=== PATIENT | male | born 1955 | race Caucasian/White ===

== ENCOUNTER → 2018-06-14 | Outpatient (CLI) | payer BC ==
[~2018-06-14] MED LIST: ASPIRIN DELAYE325 MG PO; COMBIGAN 0.2%-0.5 ML OP; DELTASONE20 MG PO; OMEGA-3 FISH1200 MG PO; SYNTHROID,LEVO25 MCG PO; VITAMIN B121000 MC2 SL; VITAMIN B1225 MCG PO; VITAMIN C1000 M2 PO; VITAMIN D32000 IU PO; XALATAN 0.005%2.5 ML INTRAOC
== END | disposition home or self-care (01) ==
LOC: ORTHO 04:02
DX: M17.0 Bilateral primary osteoarthritis of knee (principal); M25.462 Effusion, left knee; M25.461 Effusion, right knee

== ENCOUNTER 2018-10-01 02:18 | Inpatient (IN) | payer BC ==
[2018-10-01] VITALS (10 sets, daily range): BP systolic 82–161; BP diastolic 41–81
[~2018-10-01] VITALS: Ht 180.3 cm; Wt 98.9 kg
--- NOTE | ~2018-10-01 | EKG ---
[place], [place] ELECTROCARDIOGRAM REPORT NAME: GRETCHEN LOUIS UNIT #: [id number] ROOM: 427 DOCTOR: EMELIAANY DRAFT REPORT BIRTHDATE: [birth year] [facility] Test Date: 2018-10-03 Test Time: 13:56:42 Pat Name: GRETCHEN LOUIS Department: Room: 427 1 Gender: M Signals Collection Technician: Indu Robertson : 1955 Requested By: EVELINA BAINS Order Number: [id number] Reading MD: Charlene Salter MD Measurements Intervals [place] Rate: 118 P: 44 DE: 148 QRS: -50 QRSD: 139 T: 27 QT: 355 QTc: 498 Interpretive Statements Sinus tachycardia Probable left atrial enlargement RBBB and LAFB Lateral infarct, acute ST elevation, consider inferior injury Baseline wander in lead(s) V2 Compared to ECG 09/13/2018 12:10:54 Myocardial infarct finding now present ST (T wave) deviation now present Sinus rhythm no longer present Left ventricular hypertrophy no longer present Electronically Signed On 10-03-2018 16:21:23 PST by Charlene Salter MD CM:EKGRPT:ELECTROCARDIOGRAM REPORT [id number] EVELINA BAINS EPIPHANY DRAFT REPORT EVELINA BAINS
[~2018-10-01 02:18] MED LIST changes: +COUMADIN PO; +PREDNISONE PO; +Synthroid,Levo50 MCG PO; +VITAMIN E400 UNI3 PO
[2018-10-01 12:20] LABS: BASO % 0.2 % (0.0-1.0); EOS % 0.2 % (1.0-4.0); HEMATOCRIT 33.8 % (42.0-52.0); LYMPH # 1.2 10*3/uL (1.3-4.4); LYMPH % 18.4 % (27.0-41.0); MEAN CELL VOLUME 96.8 fl (80.0-94.0); MEAN CORPUSCULAR HGB 31.5 pg (27.0-31.0); MEAN CORPUSCULAR HGB CONC 32.5 g/dl (33.0-37.0); MEAN PLATELET VOLUME 10.2 fl (9.6-12.3); MONO # 0.3 10*3/uL (0.1-1.0); MONO % 4.4 % (3.0-9.0); NEUT % 76.2 % (47.0-73.0); PLATELET COUNT AUTOMATED 90 10*3/uL (130-400); RED BLOOD COUNT 3.49 10*6/uL (4.50-5.90); WHITE BLOOD COUNT 6.6 10*3/uL (4.8-10.8)
--- NOTE | 2018-10-01 13:00 | NUR ---
Time: 1300 A 63 year old MALE admitted to under services of MATIAS BLISS DO, Pt. arrived via bed from OR. Chief complaint: S/P LEFT TOTAL KNEE REPLACEMENT. PALLAVI ROSSI
--- NOTE | 2018-10-01 13:03 | NUR ---
PHYSICAL THERAPY Orders received, poatient not in room from OR at this time. Thank you for this referral. Alice Randolph,PT
--- NOTE | 2018-10-01 14:23 | NUR ---
Occupational Therapy evaluation completed on 4 with full eval to follow. Precautions include L TKA precautions, new wheeled walker use, fall risk. Patient is moderate complexity level [id number] via chart review, testing and evalaution. Recommend OT per POC and home v.s. SNF. Patient prefers to return home but he has 5 steps to enter his 1 floor home and will need to master stairs before returning home. Thank you for this referral. Pebbles Sheriff OTR/l
--- NOTE | 2018-10-01 14:24 | NUR ---
PHYSICAL THERAPY PAtient evaluated on 4 this date, full evaluation to follow. Continue with PT as per plan of care with fall and TKA LLA precautions. WBAT permitted. Home with home health RN, PT and OT. Patient is moderate complexity via chart review, tests and evaluation: [id number]. Thank you for this referral. Alice Randolph,PT
[2018-10-01 15:40] LABS: ALBUMIN 3.5 gm/dl (3.1-4.5); ALKALINE PHOSPHATASE 55 U/L (45-117); BUN 22 mg/dl (7-24); CHLORIDE 103 mmol/L (98-107); CREATININE 1.22 mg/dL (0.70-1.30); PHOSPHOROUS 2.9 mg/dL (2.5-4.9); POTASSIUM 4.1 mmol/L (3.5-5.1); SGOT/AST 29 IU/L (3-35); SGPT/ALT 47 U/L (12-78); SODIUM 140 mmol/L (136-145)
--- NOTE | 2018-10-01 16:40 | NUR ---
INSTRUCTED FOR IS THERAPY. PT ACHIEVING A VOLUME OF [id number] ML X 10 BREATHS X 1 SEC. BREATH HOLD. GOOD EFFORT. O2 SAT IS 100%. ENCOURAGED Q1 HOUR THERAPY W/A.
--- NOTE | 2018-10-01 21:44 | NUR ---
DILAUDID GIVEN FOR POST OP LT KNEE PAIN RATED 6/10. ALL SAFETY MEASURES IN PLACE. PT REQUESTS NO FURTHER NEEDS. YASMEEN KEY TO MONITOR.
[2018-10-02] VITALS: BP 137/59
--- NOTE | 2018-10-02 | NUR ---
PT C/O OF KNEE PAIN 03/26. PRN MEDS GIVEN. WILL MONITOR FOR EFFECTIVENESS.
--- NOTE | 2018-10-02 04:40 | NUR ---
PT C/O KNEE PAIN 04/26. PRN MEDS GIVEN WILL MONITOR FOR EFFECTIVENESS.
[2018-10-02 06:32] LABS: BASO % 0.1 % (0.0-1.0); HEMATOCRIT 31.8 % (42.0-52.0); HEMOGLOBIN 10.6 g/dl (14.0-18.0); LYMPH # 1.6 10*3/uL (1.3-4.4); LYMPH % 14.4 % (27.0-41.0); MEAN CORPUSCULAR HGB 32.3 pg (27.0-31.0); MEAN CORPUSCULAR HGB CONC 33.3 g/dl (33.0-37.0); MEAN PLATELET VOLUME 11.1 fl (9.6-12.3); MONO # 0.6 10*3/uL (0.1-1.0); MONO % 5.6 % (3.0-9.0); NEUT # 8.9 10*3/uL (2.3-7.9); NEUT % 79.2 % (47.0-73.0); RED BLOOD COUNT 3.28 10*6/uL (4.50-5.90); RED CELL DISTRI WIDTH 13.2 % (0-14.5); WHITE BLOOD COUNT 11.2 10*3/uL (4.8-10.8)
[2018-10-02 06:37] LABS: PLATELET COUNT AUTOMATED 143 10*3/uL (130-400)
[2018-10-02 06:43] LABS: INTERNATIONAL NORM RATIO 0.9 (2.0-3.5)
[2018-10-02 06:47] LABS: FREE T4 1.2 ng/dl (0.76-1.46)
[2018-10-02 06:53] LABS: THYROID STIM HORMONE (HS) 0.809 uIU/ml (0.358-4.75)
[2018-10-02 08:00] VITALS: BP 131/66
--- NOTE | 2018-10-02 08:15 | NUR ---
DILAUDID GIVEN FOR C/O LT KNEE PAIN. RATES 8/10 ON PAIN SCALE. WILL MONITOR.
--- NOTE | 2018-10-02 09:00 | NUR ---
Automation Technician in to talk to patient. Patient states lives at home with . There are 5 steps in the home. Physician: amy Pharmacy: Home health services: none Patient's level of ADLs: MODERATE ASSIST Patient has working utilities: all workin DME: walker Follow-up physician's appointment after d/c: will be made by hospitalist nurse director upon discharge Does patient want to access PORTAL?: no Discharge plan discussed with patient, patient states he lives at home with , he uses a walker for ambulation, patient states he has 5 steps to get into his home then everything is on one floor. discussed with him a short term longterm for rehab prior to going back home, patient did not want to go to a SNF, stated he wanted to go home with VNA. given choice of companies, he chose [facility], [facility], will send an order to [facility], [facility] for when patient is medically stable for discharge. LEWIS GUSMAN
--- NOTE | 2018-10-02 09:20 | NUR ---
DILAUDID EFFECTIVE PER PT.
--- NOTE | 2018-10-02 09:30 | NUR ---
OT NOTE Pt was seen this A.M. 1:! for 30 minute OT session. Upon arrival pt was supine in bed, pt identified by name and . Pt had reports of 6-7/10 in his L knee described as "pressure". Pt transferred supine to sit EOB with Blanca for assist with LLE management and use of overhead trapeze bar. While sitting EOB educated pt on knee precautions. Pt completed sit to stand transfer from bed level with Blanca and use of w/w for UE support. Pt completed functinal mobility into the bathroom with CGA and use of w/w. Educated pt on walker safety throughout due to staying away from walker and improving step sequence. There pt transferred on to standard commode with Blanca and use of grab bar with education to kick his LLE out when sitting. Clothing management completed with Blanca. Pt transferred off standard commode with maxA and use of grab bar due to being a low surface. Pt then stood sink side while washing his hands and face with SBA, pt had no LOB and was able to tolerate aprox 3 minutes of static standing before sitting due to fatigue. Pt returned to B where he transfered sit to supine with Blanca for assist with LLE. Pt was left supine in bed with call light in hand, tray table in place, and bed alarm activated for safety. Continue with rec D/C plan to home versus SNF. PINO Black/Jessica
[2018-10-02 12:00] VITALS: BP 133/73
--- NOTE | 2018-10-02 12:50 | NUR ---
PHYSICAL THERAPY Patient presented to therapy in supine with report of 6/10 pain in the L Knee. Patient is S/P TKA 10/01/18 on L LE. Patient agrees to therapy session. Patient was identified by name and . Patient performed supine ther ex to the L LE including SLR with AAROM, HEEL SLIDES with AAROM, HIP ABDUCTION WITH AAROM, QUAD SETS all with 10 reps each FOR IMPROVING ROM AND STRENGTH OF THE L LE. Patient then ambulated with W/W into bathroom and transferred to commode with MIN A X 1 with verbal cues for using handrail on R when sitting and kicking L LE out in front of him before sitting. Patient transferred STS off of commode with MAX A X 1. Patient performed supine to sitting at EOB with use of overhead trapeze and MIN A X 1 for moving L LE out over EOB. Patient is WBAT. Patient performed STS transfer with MIN A X 2. Patient ambulated with W/W for 88' X 1 with CGA X 1 and verbal cues for upright posture. Patient had good gait sequence with W/W. Patient transferred back to supine in bed with MIN A X 2. Patient was left in supine with head of bed elevated, call light within reach, and bed alarm activated. THIS STRETCHER LEVELER OPERATOR ACTIVATED BED ALARM WITH PINO AVILEZ WITNESS. Patient's compression boots were re-apllied and machine turned on. Patient was 1:1 with this STRETCHER LEVELER OPERATOR for 23 minutes total. Patient is recommended to PT upon discharge.
--- NOTE | 2018-10-02 13:15 | NUR ---
GRETCHEN LOUIS [id number] Please refer to the physician's history and physical for past medical history, comorbid conditions, and allergies. Diagnosis: S/P LEFT TOTAL KNEE REPLACEMENT Chema Score: 18,AT RISK WOUND DESCRIPTIONS: Patient has dressing intact to left knee. No strikethrough drainage noted at time of assessment. Patient states the areas is constantly sore but is improving. Patient stated had surgery yesterday with Dr. Marrero will continue follow up care with Dr. Marrero. Surface the patient is resting on: Isoflex SKIN PREVENTION RECOMMENDATION: 1. Pressure redistribution support surface as appropriate 2. Elevate heels 3. Remove boots/TEDS every shift and reapply 4. Head of bed 30 degrees as tolerated 5. Assess nutrition and hydration 6. Manage moisture 7. Avoid the use of containment devices while in bed 8. Use absorptive products on surfaces limit layers of linens on bed 9. Turn and reposition every 1-2 hours in bed and every 1 hour in chair as tolerated 10. Weight shifts every 15 minutes while up in chair 11. Offloading with pillows or device to keep heels elevated off bed 12. Monitor skin at least every shift 13. Inspect under medical devices twice a day WOUND TREATMENT RECOMMENDATIONS:
--- NOTE | 2018-10-02 13:28 | NUR ---
DILAUDID GIVEN FOR C/O LT KNEE PAIN. RATES 8/10 ON PAIN SCALE. WILL MONITOR.
--- NOTE | 2018-10-02 14:00 | NUR ---
OT Note Pt was seen this P.M. 1:1 for second OT session consisting of 15 minutes. Upon arrival pt was supine in bed, pt identified by name and . Pt had reports of 10/10 L knee pain. Pt transferred supine to sit EOB with Blanca for assist with LLE, pt utilized overhead trapeze bar and bed rail throughout transfer. Pt completed sit to stand transfer from elevated bed level with Blanca and use of w/w for UE support. Pt completed functional mobility around the room for increased I in self care tasks and functional transfers with CGA and use of w/w. Pt maintained good walker throughout. Challenged pt's static standing tolerance without UE support to simulate sink side grooming and pt was able to tolerate aprox 2 minutes at a time before reaching for UE support. Pt returned to EOB where he transferred sit to supine with Blanca for assist with LLE. Pt was left supine in bed with call light in hand, tray table in place, and bed alarm activated for safety. Continue with rec D/c plan to home versus SNF. PINO Black/Jessica
--- NOTE | 2018-10-02 14:13 | NUR ---
PHYSICAL THERAPY Patient presented to therapy with head of bed elevated and report of 10/10 pain in the L Knee. Patient's visiting in the room. Patient agrees to therapy sesion. Patient was identified by name and . Patient performed supine to sitting at EOB with MIN A X 1, MOSTLY FOR ASSISTING with moving the L LE out over EOB. Patient transferred STS with MIN A X 2. Patient performed ambulation with W/W and Close Supervision for 120' x 1 with verbal cues for upright posture and not to pivot on L LE. Patient became slightly lite-headed towards end of gait distance and then CGA X 1 was used. Patient recovered from the lite-headedness quickly. Patient has catheter in tow while ambulating. Patient transferred back to supine in bed with MIN A X 1. Patient was left in supine with head of bed elevated, call light within reach, and bed alarm activated. This MID WIFE activated bed alarm with PRINGLE RAGHAV as witness and also patient's as witness. Patient was 1:1 with this MID WIFE for 20 minutes total. Patient is recommended for HH PT upon discharge. KATHY SANTANA MID WIFE
--- NOTE | 2018-10-02 14:30 | NUR ---
DILUADID EFFECTIVE PER PT.
--- NOTE | 2018-10-02 15:44 | NUR ---
OCCUPATIONAL THERAPY CO-SIGN I approve of the Occupational Therapy notes written above. ISMAEL CORONADO OTR/Jessica
--- NOTE | 2018-10-02 15:54 | NUR ---
DILAUDID GIVEN FOR C/O LT KNEE PAIN. WAILL MONITOR.
[2018-10-02 16:00] VITALS: BP 112/71
--- NOTE | 2018-10-02 17:58 | NUR ---
DILAUDID GIVEN FOR C/O LT KNEE PAIN. WILL MONITOR.
--- NOTE | 2018-10-02 18:56 | NUR ---
DILAUDID EFFECTIVE PER PT
[2018-10-02 20:00] VITALS: BP 129/72
--- NOTE | 2018-10-02 20:28 | NUR ---
PATIENT MEDICATED WITH DILUADID PER DRS ORDERS FOR COMPLAINTS OF PAIN TO THE LEFT KNEE. RN WILL MONITOR FOR EFFECTIVENESS
--- NOTE | 2018-10-02 21:30 | NUR ---
PATIENT STATES "SOME RELIEF" FROM EARLIER PAIN MEDICATION
--- NOTE | 2018-10-02 22:25 | NUR ---
PATIENT MEDICATED PER FRANTZ NAYLOR FOR COMPLAINTS OF PAIN TO LEFT KNEE AT THIS TIME. RN WILL MONITOR FOR EFFECTIVENESS
--- NOTE | 2018-10-02 23:25 | NUR ---
PATIENT STATES MEDICATION WAS EFFECTIVE AT DECREASING PAIN
[2018-10-03] VITALS: BP 140/68
--- NOTE | 2018-10-03 00:35 | NUR ---
PATIENT MEDICATED FOR PAIN AT THIS TIME. SEE EMAR. RN WILL CONTINUE TO MONITOR
--- NOTE | 2018-10-03 02:40 | NUR ---
PT GIVEN PRN DILAUDID FOR PAIN. PT STATES EFFECTIVE IMMEDIATLY. WILL CONTINUE TO MONITOR PT
--- NOTE | 2018-10-03 05:55 | NUR ---
PATIENT MEDICATED PER DRS ORDERS FOR COMPLAINTS OF KNEE PAIN. SEE EMR. RN WILL MONITOR FOR EFFECTIVENESS
[2018-10-03 07:38] LABS: BASO % 0.2 % (0.0-1.0); EOS % 0.4 % (1.0-4.0); HEMATOCRIT 29.6 % (42.0-52.0); HEMOGLOBIN 9.9 g/dl (14.0-18.0); LYMPH % 19.2 % (27.0-41.0); MEAN CORPUSCULAR HGB 32.8 pg (27.0-31.0); MEAN CORPUSCULAR HGB CONC 33.4 g/dl (33.0-37.0); MEAN PLATELET VOLUME 10.6 fl (9.6-12.3); MONO # 0.5 10*3/uL (0.1-1.0); MONO % 4.9 % (3.0-9.0); NEUT # 7.7 10*3/uL (2.3-7.9); NEUT % 74.4 % (47.0-73.0); PLATELET COUNT AUTOMATED 119 10*3/uL (130-400); RED BLOOD COUNT 3.02 10*6/uL (4.50-5.90); RED CELL DISTRI WIDTH 13.3 % (0-14.5); WHITE BLOOD COUNT 10.4 10*3/uL (4.8-10.8)
[2018-10-03 08:00] VITALS: BP 143/68
[2018-10-03 08:02] LABS: INTERNATIONAL NORM RATIO 0.9 (2.0-3.5)
--- NOTE | 2018-10-03 09:00 | NUR ---
case management visits with patient, again discussed with him a discharge plan, patient states he will be going home when able and will have [facility]. no other needs at this time
--- NOTE | 2018-10-03 10:30 | NUR ---
OT NOTE Pt was seen this A.M. 1:1 for 20 minute OT session. Upon arrival pt was supine in bed, pt identified by name and . Pt had reports of 5/10 LLE knee pain at rest and 8/10 with activity. Educated and demonstrated use of leg rn occupational for increased I in bed mobility. Pt transferred supine to sit EOB with CGA and use of leg lift and overhead trapeze bar. Functional mobility completed into the bathroom with CGA and use of w/w for UE support. There he transferred on to standard commode with Blanca and use of grab bar, clothing management completed with Blanca, and transferred off standard commode with modA and use of grab bar. Pt then stood sink side while washing his hands with SBA. Functional mobility completed back to EOB where he transferred sit to supine with use of leg lift and CGA. Pt was left supine in bed with call light in reach and under doctor supervision. Continue with rec D/c plan to home versus SNF. PINO Black/Jessica
--- NOTE | 2018-10-03 11:01 | NUR ---
PHYSICAL THERAPY Patient presented to therapy in [facility] with head of bed elevated and bed alarm activated. Patient had report of 5/10 pain in L Knee at rest and 8/10 pain in L Knee with activity. Patient agrees to therapy session. Patient was identified by name and . Patient transferred supine to sitting at EOB with SBA with verbal cues for using LE lift to move L LE out to side and over EOB. Patient transferred STS with MOD A X 1. Patient ambulated with W/W for 192' x 1 with CGA X 1 with verbal cues for upright posture and proper gait mechanics. Patient transferred to and from [facility] with MIN A X 1 to sit and MOD A X [facility]. Patient transferred back to supine in bed with SBA. Patient was left in supine with head of bed elevated and DR. Marrero , another Doctor, and Grain Shipper for Dr. Marrero present with patient about to change the dressing on patient's L LE. Patient was 1:1 with this CLINICAL TRIALS MANAGER FOR 23 MINUTES TOTAL. KATHY SANTANA CLINICAL TRIALS MANAGER
--- NOTE | 2018-10-03 11:59 | NUR ---
URINARY CATHETER REMOVED AT THIS TIME PER POST-OP DAY 2 ORDER. PT TOLERATED WELL. THERE ARE NO COMPLAINTS AT THIS TIME. WILL CONTINUE TO MONITOR.
[2018-10-03 12:00] VITALS: BP 125/65
--- NOTE | 2018-10-03 13:15 | NUR ---
MEDICATED WITH IV DILAUDID ORDERED PER PT REQUEST FOR C/O PAIN RATED 6/10.
--- NOTE | 2018-10-03 13:25 | NUR ---
OT NOTE Pt was seen this P.M. 1:1 for second OT session consisting of 20 minutes. Upon arrival pt was supine in bed, pt identified by name and . Pt had reports of 6/10 L knee pain. Pt transferred supine to sit EOB with SBA and use of leg lift. While sitting EOB educated and demonstrated use of sock aid, vocational placement specialist, and long handle sponge for increased I in self care tasks. Pt then doffed socks using the vocational placement specialist with supervision. Donned socks using the sock aid with supervision and min verbal prompts for improving his technique. Pt then completed LB bathing with use of long handle sponge and supervision. Pt transferred back into bed sit to supine with SBA where he was left with call light in hand, tray table in place, and bed alarm activated for safety. Continue with rec D/c plan to home versus SNF. PINO Black/Jessica
--- NOTE | 2018-10-03 13:57 | NUR ---
PT IS RESTING IN BED AT THIS TIME WITH FAMILY AT THE BEDSIDE. HIS ONLY COMPLAINT AT THIS TIME IS PAIN TO HIS LEFT KNEE WHICH HE STATES IS CONTROLLED WITH PRN ORDER FOR DILAUDID. AT THIS TIME HE STATES HIS PAIN IS A 4/10. PT HAS AMBULATED IN THE [place] WITH PHYSICAL THERAPY TWICE AND TOLERATED WELL. SURGICAL SITE DRESSING WAS CHANGED TODAY, IT IS CLEAN, DRY AND INTACT. WILL CONTINUE TO MONITOR PT.
--- NOTE | 2018-10-03 14:24 | NUR ---
PHYSICAL THERAPY Patient presented to therapy in supine with head of bed elevated and report of 5/10 pain with no activity and 8/10 PAIN IN L KNEE with ACTIVITY. Patient agrees to therapy session. Patient was identified by name and . Patient performed supine to sitting transfer to EOB with SBA and patient using leg lift to assist with moving the L LE over EOB. Patient transferred STS with MOD A X 1. Patient ambulated with W/W and Close Supervision for 160' x 1 with verbal cues for putting heel down when advancing the L LE to promote extension and upright posture. Patient transferred back to supine in bed with SBA with patient using the leg lift as he transferred back to supine in bed. Patient used the trapeze only to move up in bed. Patient then performed supine ther ex in all planes of movement with assist from LEG LIFT DEVICE, AAROM, including ANKLE PUMPS, SLRs, hip abduction, heel slides, Quad sets, and heel prop hamstring stretch with lite overpressure. Patient tolerated treatment well with better gait mechanics and improving strength and ROM of the L Knee. Patient has the isrrael bandage wrap removed now and feels much more comfortable and has improving ROM. Patient was left in supine position with head of bed elevated, L HEEL on rolled blanket, call light within reach, and bed alarm activated. Patient's is in room visiting. Patient's bed alarm was witnessed being turned on by patient's and other therapist. Patient was 1:1 with this BRUSHER TENDER for 25 minutes total. KATHY SANTANA BRUSHER TENDER
[2018-10-03 14:56] LABS: EOS % 0.1 % (1.0-4.0); HEMATOCRIT 30.5 % (42.0-52.0); LYMPH # 1.3 10*3/uL (1.3-4.4); LYMPH % 11.4 % (27.0-41.0); MEAN CELL VOLUME 97.4 fl (80.0-94.0); MEAN CORPUSCULAR HGB 31.9 pg (27.0-31.0); MEAN CORPUSCULAR HGB CONC 32.8 g/dl (33.0-37.0); MEAN PLATELET VOLUME 10.7 fl (9.6-12.3); MONO # 0.4 10*3/uL (0.1-1.0); MONO % 3.2 % (3.0-9.0); NEUT # 9.3 10*3/uL (2.3-7.9); NEUT % 84.4 % (47.0-73.0); PLATELET COUNT AUTOMATED 107 10*3/uL (130-400); RED BLOOD COUNT 3.13 10*6/uL (4.50-5.90); RED CELL DISTRI WIDTH 13.2 % (0-14.5)
--- NOTE | 2018-10-03 15:00 | NUR ---
RECIEVED PT FROM [facility]. PATIENT IS SITTING UP IN BED AT THIS TIME, VOICED NO COMPLAINTS AT THIS TIME. NO S&S OF DISTRESS NOTED, RESP ARE ERND ON ROOM AIR. ASKED PRIOR NURSE TO VERIFY CPM ORDERS AND IF WANTS IT ON TODAY. BED IS LOCKED IN LOWEST POSITIONS. SCDS REAPPLIED TO BLE. LEFT KNEE AQUACEL DRESSING D/C/I. CALL LIGHT LEFT WITHIN REACH.
[2018-10-03 15:10] LABS: BUN 27 mg/dl (7-24); CHLORIDE 96 mmol/L (98-107); CREATININE 1.24 mg/dL (0.70-1.30); POTASSIUM 4.4 mmol/L (3.5-5.1); SODIUM 133 mmol/L (136-145)
--- NOTE | 2018-10-03 15:25 | NUR ---
ON FLOOR ADDRESSED CONCERNS WITH EKG FINDINGS AND ELEVATED D.DIMER RESULTS. STATED THAT CTA AND ULTRASOUND WILL BE ORDER.
--- NOTE | 2018-10-03 15:27 | NUR ---
JJ-RN CONFORMED WITH THATCPM SHOULD BE ON TODAY AND TO HAVE PT PUT INTO PLACE AT 30 DEGREES FOR 2HRS, IF PATIENT DOENS'T TOLERATE TO D/C CPM ORDERS. CPM WILL BE HELD AT THIS TIME THOUGH PER NURSING JUDGEMENT D/T RECENT LAB RESULTS AND NEW ORDERS TO BE PLACED BY DR. CUI FOR CTA AND US OF LOWWER EXTREMITY.
--- NOTE | 2018-10-03 15:53 | NUR ---
PATIENT MEDICATED WITH DILUADID FOR LEFT KNEE PAIN 01/24. WILL MONITOR.
[2018-10-03 16:00] VITALS: BP 122/60
--- NOTE | 2018-10-03 16:01 | NUR ---
INFORMED THAT CT REQUEST FOR STAT CXR TO BE CHANGED TO PORTABLE CXR 1VIEW.STATED THAT WAS FINE AND TO PLACE THE ORDER.
--- NOTE | 2018-10-03 16:25 | NUR ---
CALLED AND INFORMED THAT SHE NOTICED D.DIMER AND REQUESTED THAT CPM NOT BE PLACE ATTHIS TIME , IMFORMED HER THAT PER MY NURSING JUDGEMENT HE WAS NOT PLACED IN IT, STATED THAT WAS FINE. STATED IT WAS OK THOUGH AFTER ALL TEST CAME BACK NEGATIVE FOR BLOOD CLOT, WE CAN TRY CPM WITH LAST SETTINGS ORDERED.
--- NOTE | 2018-10-03 16:53 | NUR ---
DILUADID EFFECTIVE FOR LEFT KNEE PAIN.
--- NOTE | 2018-10-03 17:15 | NUR ---
Hep Lock discontinued TO LEFT ARM. Site symptomatic, RED AT SITE. Pressure applied. Sterile dressing applied. MAYE BERNARD
--- NOTE | 2018-10-03 17:15 | NUR ---
IV started left antecubital with #24 angiocath after 0 attempts. The IV site was prepped with Chloraprep. Heparin lock attached. Sterile dressing applied. Patient tolerated precedure well. Procedure performed according to [facility] policy & procedure. MAYE BERNARD
--- NOTE | 2018-10-03 18:22 | NUR ---
INFORMED OF US RESULTS AND OF DVT TO RLE. STATED WAIT FOR CTA RESULTS.
--- NOTE | 2018-10-03 19:45 | NUR ---
PENDING ORDERS FOR LOVENOX BID STARTING TONIGHT AT 1999. CALLED RESIDENT TO CONFIRM ORDER DESPITE PT HAVING PLT LEVEL OF 107. STATED HE WILL NOTIFIY WHEN DECISION IS MADE
[2018-10-03 20:00] VITALS: BP 109/69
--- NOTE | 2018-10-03 20:08 | NUR ---
PT GIVEN PRN DILAUDID FOR PAIN. PT STATES EFFECTIVE IMMIDIATLY. WILL CONTINUE TO MONITOR PT
--- NOTE | 2018-10-03 20:15 | NUR ---
NOTIFIED THAT LOVENOX IS TO BE STARTED TONIGHT DESPITE 107 PLT COUNT. WILL FOLLOW ORDERS SUCH. DISCUSSED MEDICATION WITH PT.
--- NOTE | 2018-10-03 22:28 | NUR ---
PT GIVEN PRN DILAUDID FOR PAIN. PT STATES EFFECTIVE IMMEDIATLY.
[2018-10-04] VITALS: BP 118/65
--- NOTE | 2018-10-04 02:20 | NUR ---
PT GIVEN DILAUDID FOR PAIN. PT STATES EFFECTIVE IMMEDIATLY
--- NOTE | 2018-10-04 05:15 | NUR ---
PT GIVEN DILAUDID FOR PAIN. PT STATES EFFECTIVE IMMEDIATLY
[2018-10-04 06:34] LABS: BASO % 0.2 % (0.0-1.0); EOS % 0.3 % (1.0-4.0); HEMATOCRIT 28.7 % (42.0-52.0); HEMOGLOBIN 9.3 g/dl (14.0-18.0); LYMPH # 1.9 10*3/uL (1.3-4.4); LYMPH % 20.7 % (27.0-41.0); MEAN CELL VOLUME 97.3 fl (80.0-94.0); MEAN CORPUSCULAR HGB 31.5 pg (27.0-31.0); MEAN CORPUSCULAR HGB CONC 32.4 g/dl (33.0-37.0); MEAN PLATELET VOLUME 10.9 fl (9.6-12.3); MONO # 0.3 10*3/uL (0.1-1.0); MONO % 3.7 % (3.0-9.0); NEUT # 6.8 10*3/uL (2.3-7.9); NEUT % 73.8 % (47.0-73.0); PLATELET COUNT AUTOMATED 133 10*3/uL (130-400); RED BLOOD COUNT 2.95 10*6/uL (4.50-5.90); RED CELL DISTRI WIDTH 13.2 % (0-14.5); WHITE BLOOD COUNT 9.2 10*3/uL (4.8-10.8)
[2018-10-04 06:47] LABS: INTERNATIONAL NORM RATIO 0.9 (2.0-3.5)
[2018-10-04 07:14] LABS: BUN 25 mg/dl (7-24); CHLORIDE 97 mmol/L (98-107); CREATININE 1.12 mg/dL (0.70-1.30); POTASSIUM 3.7 mmol/L (3.5-5.1); SODIUM 136 mmol/L (136-145)
[2018-10-04 08:21] VITALS: BP 125/66
--- NOTE | 2018-10-04 09:00 | NUR ---
case management visits with patient, patient states he will be going home when able, a respresentative from [facility] called and spoke to him yesterday about their services. patient will be going home when medically stable
--- NOTE | 2018-10-04 09:10 | NUR ---
OT NOTE Pt was seen this A.M 1:1 for 18 minute OT session. Upon arrival pt wa supine in bed, pt identified by name and . Pt transferred supine to sit EOB with SBA and use of leg lift. While sitting EOB pt donned his socks using the sock aid with supervision. Pt then completed sit to stand from bed level with Blanca and use of w/w for UE support. Functional mobility completed into the bathroom with SBA and use of w/w where he transferred on to standard commode with Blanca and use of grab bar. Clothing management completed with Blanca and toilet hygiene completed WI while seated. Pt then transferred off standard commode with maxA and use of grab bar with education on technique to increase I. Pt then stood sink side while washing his hands with SBA. Functional mobility completed around the room back to the EOB with SBA where he transferred sit to supine with SBA and good use of leg lift. Pt was left supine in bed with call light in hand, tray table in place, and bed alarm activated for safety. Continue with rec D/C plan to home versus SNF. PINO Black/Jessica
--- NOTE | 2018-10-04 09:23 | NUR ---
PHYSICAL THERAPY Patient presented to therapy in supine with head of bed elevated and report of having tests yesterday for a DVT of the L LE ,which were Negative for DVT.Patient reports redness around the L Knee area and he has a MÓNICA HOSE on his L LE. Patient performed supine to sitting at EOB transfer with SBA. Patient uses the LEG LIFT to move the L LE out over the EOB to floor to assist with transfer. Patient did not use the trapeze to transfer. Patient performed transfer STS with MOD A X 1 to W/W. Patient ambulated to restroom and transferred to commode with MIN A X 1. Patient transferred off of commode with MAX A X 1. Patient ambulated 120' x 1 with W/W and his nurse just connected electrodes ot patient's chest to monitor heart rate. Patient's heart rate was recorded as 129 -135 the entire distance of the gait. Patient's performed gait with W/W and Close Supervision. Patient transferred back to supine in bed with use of LEG LIFT on L LE with SBA. Patient was left in supine with head of bed elevated, call light within reach, and bed alarm activated. Patient bed alarm was activated with PINO AVILEZ WITNESS. Patient was 1:1 with this PROPERTY COORDINATOR for 25 minutes total. KATHY SANTANA PROPERTY COORDINATOR
--- NOTE | 2018-10-04 11:02 | NUR ---
PRN ORDER FOR DILAUDID REQUESTED AND RECIEVED FOR C/O PAIN TO LEFT KNEE. PT STATES THAT IT IS A 6-7/10 WITH INCREASED PAIN WHEN HE MOVES. WILL MONITOR FOR EFFECTIVENESS OF MEDICATION
[2018-10-04 12:00] VITALS: BP 120/65
--- NOTE | 2018-10-04 12:30 | NUR ---
DILAUDID EFFECTIVE PER PT
--- NOTE | 2018-10-04 13:00 | NUR ---
OT NOTE Pt was seen this P.M. 1:1 for second OT session consisting of 15 minutes. Upon arrival pt was sitting upright on the EOB. Pt identified by name and . Pt transferred on to standard commode with Blanca and use of grab bar. Clothing management completed with Blanca and toilet hygiene completed OH while seated. Pt then transferred off standard commode with Blanca using technique of leaning to the R side while standing like previously educated on. Pt then stood sink side while washing his hands with SBA. Pt transferred back into to bed sit to supine with SBA and use of leg lift. Pt was left supine in bed with call light in hand, trya table in place, and bed alarm activated for safety. Continue with rec D/C plan to homw versus SNF. PINO Black/Jessica
--- NOTE | 2018-10-04 14:23 | NUR ---
PHYSICAL THERAPY Patient presented to therapy in supine with head bed elevated, visiting in room , and no complaints or concerns. Patient agrees to therapy session. Patient was identified by name and . Patient transferred supine to sitting at EOB with SBA. Patient used leg lift and did not use overhead trapeze. Patient transferred STS with to W/W with CGA X 1. Patient ambulated to [facility] , which is approx. 50' x 1 from his room, and this ACQUISITION PROFESSIONAL demonstrated ascending and descending 5 steps with strong LE going up and weak LE going down and use of handrail. Patient ascended and descended 5 steps with CGA X 1 going up steps and CGA X 1 going down steps. with verbal instructions for proper sequence and technique. Patient had minimal difficulty ascending and descending stairs. PAtient ambulated back to his room and transferred back to supine in bed with SBA. Patient moved himself up to head of bed. Patient was left in supine with head of bed elevated, call light within reach, and bed alarm activated with his and PINO Fuentes WITNESSES. Patient was 1:1 with this ACQUISITION PROFESSIONAL for 23 minutes total. KATHY SANTANA ACQUISITION PROFESSIONAL
--- NOTE | 2018-10-04 14:47 | NUR ---
PT REQUESTED AND RECIEVED PRN ORDER FOR DILAUDID FOR C/O PAIN TO LT KNEE. WILL MONITOR FOR EFFECTIVENESS.
[2018-10-04 16:00] VITALS: BP 111/45
--- NOTE | 2018-10-04 16:00 | NUR ---
DILAUDID EFFECTIVE PER PT
--- NOTE | 2018-10-04 17:27 | NUR ---
PT REQUESTED PRN ORDER FOR NORCO FOR C/O PAIN TO LT KNEE. WILL MONITOR FOR EFFECTIVENESS.
[2018-10-04 20:00] VITALS: BP 147/76
--- NOTE | 2018-10-04 22:00 | NUR ---
PATIENT MEDICATED SLOWLY WITH DILAUDID 2 MG IV PER PRN ORDER FOR C/O BACK AND LEG PAIN. RATED PAIN A 9/10 WITH 10 BEING THE WORST. SEE EMAR. REINFORCED USE OF CALL LIGHT.
[2018-10-05] VITALS: BP 139/70
--- NOTE | 2018-10-05 01:05 | NUR ---
24 HR chart check completed.
--- NOTE | 2018-10-05 02:56 | NUR ---
PT GIVEN PRN DILAUDID FOR PAIN PER REQUEST OF CHRISTO COX. PT STATES EFFECTIVE IMMIDIATLY.
[2018-10-05 06:13] LABS: EOS % 0.1 % (1.0-4.0); HEMATOCRIT 26.7 % (42.0-52.0); HEMOGLOBIN 8.8 g/dl (14.0-18.0); LYMPH # 1.6 10*3/uL (1.3-4.4); LYMPH % 21.6 % (27.0-41.0); MEAN CELL VOLUME 97.4 fl (80.0-94.0); MEAN CORPUSCULAR HGB 32.1 pg (27.0-31.0); MEAN PLATELET VOLUME 10.7 fl (9.6-12.3); MONO # 0.3 10*3/uL (0.1-1.0); MONO % 4.1 % (3.0-9.0); NEUT # 5.4 10*3/uL (2.3-7.9); NEUT % 73.3 % (47.0-73.0); PLATELET COUNT AUTOMATED 139 10*3/uL (130-400); RED BLOOD COUNT 2.74 10*6/uL (4.50-5.90); RED CELL DISTRI WIDTH 13.2 % (0-14.5); WHITE BLOOD COUNT 7.4 10*3/uL (4.8-10.8)
--- NOTE | 2018-10-05 09:58 | NUR ---
PHYSICAL THERAPY PT SITTING UP IN BED UPON ARRIVAL. PT IDENTIFIED BY NAME AND . PT AGREED TO ALL PT TREATMENT THIS VISIT. PT PERFORMED BED MOBILITY DE. PT PERFORMED STS FROM EOB TO FWW WITH PROPER TECHINQUE AND SAFETY. PT GAIT TRAINED [id number] WITH FWW AND SBA. PT HR WAS 120BPM BEFORE GAIT AND 136BPM AT END OF GAIT. PT REPORT THAT PAIN LEVEL IS 9/10 IN STANCE PHASE OF GAIT. PT HAS A STEP TO GAIT PATTERN. PT PERFORMED STS FROM FWW TO EOB WITH PROPER TECHIQUE AND SAFEY. PT SITTING UP IN BED AT END OF SESSION WITH CALL LIGHT ON NIGHT STAND. PT ASKED IF HE NEEDED ANYTHING ELSE FROM THIS CALIBRATION TESTER AND PT STATED "NOT AT THIS TIME." PT SEEN 1:1 FOR 18MIN. JULIA JACKSON CALIBRATION TESTER
--- NOTE | 2018-10-05 10:55 | NUR ---
PHYSICAL THERAPY PT SITTING UP IN BED UPON ARRIVAL. PT REPORTS THAT HE WOULD LIKE TO HOLD OFF ON SECOND VISIT VISIT TODAY. JULIA JACKSON PTA
[2018-10-05] MEDS ORDERED: ENOXAPARIN100 MG/1 M SC (12:30)
[2018-10-05] MEDS ORDERED: NORCO 5-325 TA1 EACH PO (12:30)
[2018-10-05] MEDS ORDERED: COUMADIN7.5 M1 PO (12:30)
--- NOTE | 2018-10-05 13:48 | NUR ---
CCDIS Discharge instructions reviewed with patient/family. Patient receptive and verbalizes understanding. Follow-up care arranged. Written instructions given to patient/family. GER NGUYEN
--- NOTE | 2018-10-07 07:54 | NUR ---
OCCUPATIONAL THERAPY CO-SIGN I approve of the Occupational Therapy notes written above. DANDY ARORA
--- NOTE | 2018-10-14 08:10 | NUR ---
PHYSICAL THERAPY CO-SIGN I approve of the Phyical Therapy notes written above. MOE GELLER PT
== END 2018-10-05 13:30 | disposition home health service (06) | DRG 470 ==
LOC: SDC 02:18 → 4E 08:20 → SDC 10:15 → 4E 10-04 08:40
PROVIDERS: Internal Medicine; Internal Medicine Nephrology; Orthopaedic Surgery; ADMIT Internal Medicine
PROC: 0SRD0J9 Replacement of Left Knee Joint with Synthetic Substitute, Cemented, Open Approach (ICD-10-PCS; principal; 2018-10-02)
DX: M17.12 Unilateral primary osteoarthritis, left knee (principal); R65.10 Systemic inflammatory response syndrome (SIRS) of non-infectious origin without acute organ dysfunction; D68.59 Other primary thrombophilia; E87.1 Hypo-osmolality and hyponatremia; I82.511 Chronic embolism and thrombosis of right femoral vein; I82.531 Chronic embolism and thrombosis of right popliteal vein; I82.541 Chronic embolism and thrombosis of right tibial vein; D69.6 Thrombocytopenia, unspecified; E87.8 Other disorders of electrolyte and fluid balance, not elsewhere classified; R21 Rash and other nonspecific skin eruption; D53.9 Nutritional anemia, unspecified; R73.9 Hyperglycemia, unspecified; E55.9 Vitamin D deficiency, unspecified; E66.09 Other obesity due to excess calories; Z68.30 Body mass index [BMI] 30.0-30.9, adult; E03.9 Hypothyroidism, unspecified; H40.9 Unspecified glaucoma; Z79.899 Other long term (current) drug therapy; Z81.1 Family history of alcohol abuse and dependence; Z86.711 Personal history of pulmonary embolism; Z79.01 Long term (current) use of anticoagulants

== ENCOUNTER → 2018-10-10 | Outpatient (CLI) | payer BC ==
[~2018-10-10] MED LIST changes: +COUMADIN7.5 M1 PO; +ENOXAPARIN100 MG/1 M SC; +NORCO 5-325 TA1 EACH PO
[2018-10-10 10:27] LABS: BASO % 0.2 % (0.0-1.0); EOS # 0.2 10*3/uL (0.0-0.4); EOS % 1.7 % (1.0-4.0); HEMATOCRIT 34.3 % (42.0-52.0); HEMOGLOBIN 11.5 g/dl (14.0-18.0); LYMPH # 2.4 10*3/uL (1.3-4.4); LYMPH % 27.7 % (27.0-41.0); MEAN CELL VOLUME 96.9 fl (80.0-94.0); MEAN CORPUSCULAR HGB 32.5 pg (27.0-31.0); MEAN CORPUSCULAR HGB CONC 33.5 g/dl (33.0-37.0); MEAN PLATELET VOLUME 9.9 fl (9.6-12.3); MONO # 0.4 10*3/uL (0.1-1.0); NEUT # 5.8 10*3/uL (2.3-7.9); NEUT % 65.4 % (47.0-73.0); PLATELET COUNT AUTOMATED 263 10*3/uL (130-400); RED BLOOD COUNT 3.54 10*6/uL (4.50-5.90); RED CELL DISTRI WIDTH 13.7 % (0-14.5); WHITE BLOOD COUNT 8.8 10*3/uL (4.8-10.8)
== END | disposition home or self-care (01) ==
LOC: LAB 01:33 → ORTHO 01:33
PROVIDERS: Orthopaedic Surgery
DX: D64.9 Anemia, unspecified (principal)

== ENCOUNTER → 2018-10-23 | Outpatient (CLI) | payer BC | END | disposition home or self-care (01) | LOC: RAD 14:51 | DX: M25.462 Effusion, left knee (principal); Z96.652 Presence of left artificial knee joint ==

== ENCOUNTER → 2018-10-28 | Outpatient (CLI) | payer BC ==
[2018-10-28 12:55] LABS: BASO % 0.3 % (0.0-1.0); EOS # 0.2 10*3/uL (0.0-0.4); EOS % 1.8 % (1.0-4.0); HEMATOCRIT 41.3 % (42.0-52.0); LYMPH # 2.3 10*3/uL (1.3-4.4); MEAN CELL VOLUME 96.5 fl (80.0-94.0); MEAN CORPUSCULAR HGB 30.4 pg (27.0-31.0); MEAN CORPUSCULAR HGB CONC 31.5 g/dl (33.0-37.0); MEAN PLATELET VOLUME 10.8 fl (9.6-12.3); MONO # 0.3 10*3/uL (0.1-1.0); MONO % 3.7 % (3.0-9.0); NEUT # 6.3 10*3/uL (2.3-7.9); NEUT % 68.9 % (47.0-73.0); PLATELET COUNT AUTOMATED 179 10*3/uL (130-400); RED BLOOD COUNT 4.28 10*6/uL (4.50-5.90); RED CELL DISTRI WIDTH 13.4 % (0-14.5); WHITE BLOOD COUNT 9.1 10*3/uL (4.8-10.8)
[2018-10-28 12:58] LABS: BUN 23 mg/dl (7-24); CHLORIDE 106 mmol/L (98-107); CREATININE 1.28 mg/dL (0.70-1.30); POTASSIUM 3.8 mmol/L (3.5-5.1); SODIUM 144 mmol/L (136-145)
== END | disposition home or self-care (01) ==
LOC: ORTHO 01:16 → LAB 01:16 → ORTHO 21:10
PROVIDERS: Orthopaedic Surgery
DX: Z96.652 Presence of left artificial knee joint (principal)

== ENCOUNTER → 2018-11-11 | Outpatient (CLI) | payer BC ==
[2018-11-11 12:41] LABS: BASO % 0.2 % (0.0-1.0); EOS # 0.1 10*3/uL (0.0-0.4); EOS % 0.8 % (1.0-4.0); HEMATOCRIT 40.3 % (42.0-52.0); HEMOGLOBIN 13.3 g/dl (14.0-18.0); LYMPH # 1.2 10*3/uL (1.3-4.4); LYMPH % 12.3 % (27.0-41.0); MEAN CELL VOLUME 93.7 fl (80.0-94.0); MEAN CORPUSCULAR HGB 30.9 pg (27.0-31.0); MEAN PLATELET VOLUME 10.7 fl (9.6-12.3); MONO # 0.3 10*3/uL (0.1-1.0); NEUT # 8.2 10*3/uL (2.3-7.9); NEUT % 83.2 % (47.0-73.0); PLATELET COUNT AUTOMATED 169 10*3/uL (130-400); RED CELL DISTRI WIDTH 13.3 % (0-14.5); WHITE BLOOD COUNT 9.8 10*3/uL (4.8-10.8)
[2018-11-11 12:48] LABS: BUN 22 mg/dl (7-24); CHLORIDE 107 mmol/L (98-107); CREATININE 1.18 mg/dL (0.70-1.30); POTASSIUM 4.2 mmol/L (3.5-5.1); SODIUM 143 mmol/L (136-145)
[2018-11-11 13:02] LABS: INTERNATIONAL NORM RATIO 2.2 (2.0-3.5)
== END | disposition home or self-care (01) ==
LOC: LAB 10:42
PROVIDERS: Orthopaedic Surgery
DX: Z96.652 Presence of left artificial knee joint (principal)

== ENCOUNTER 2018-11-26 02:21 | Inpatient (IN) | payer BC ==
[2018-11-25 09:09] LABS: ALBUMIN 3.3 gm/dl (3.1-4.5); TOTAL PROTEIN 6.6 gm/dL (6.4-8.2)
[2018-11-26] VITALS (11 sets, daily range): BP systolic 98–141; BP diastolic 20–72
[~2018-11-26] VITALS: Ht 180.3 cm; Wt 93.9 kg
--- NOTE | ~2018-11-26 | O ---
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 POSTOPERATIVE DIAGNOSIS: Left knee arthroplasty with patellar subluxation and contracture. OPERATIVE PROCEDURE: Left total knee arthroplasty manipulation under anesthetic and surgical polyethylene exchange medially and lateral patellar release with medial quadriceps reefing. SURGEON: Corina Marrero DO. CANDY MAKER HELPER: Ness Cotto. ANESTHESIA: Spinal with an adductor block. INDICATIONS: The patient is a 63-year-old male who had a history of a left total knee replacement on 10/01/2018. He suffered what appeared to be a patellar dislocation and then had remaining subluxation of the patella with pain and decreased motion. The risks and benefits of the procedure were explained to the patient preoperatively. Preoperative labs and x-rays were obtained. The patient was noted to be on Coumadin and this was held and he was placed on Lovenox preoperatively. The left knee was marked in the holding room. The patient was taken to the operative suite. An adductor block had been performed in the holding room. The patient received preoperative antibiotics. A spinal anesthetic was performed by Anesthesia. The left lower extremity was prepped and draped in usual orthopedic fashion. The timeout was performed. The left knee was taken through range of motion from 0 to approximately 65 degrees. There was a firm block at 65 degrees. A manual manipulation was performed and the flexion was obtained to past 120 degrees. The extremity was exsanguinated. Tourniquet was inflated to 350 mmHg. Midline incision was followed and made sharply with the scalpel. Subcutaneous tissue was spread down to the level of the quadriceps mechanism. The patella was noted to lie in a subluxed lateral position. The parapatellar incision was made medially. The undersurface of the patella was identified and evaluated and noted to be intact. The knee was taken through a range of motion and the patella was noted to sublux laterally. A lateral release was performed within the joint as well as outside of the joint using Bender scissors and electrocautery. The patella was again evaluated during range of motion and was noted to remain in the femoral trochlea, although it was riding laterally. The knee was evaluated for varus and valgus stress at 0, 30 and 90 degrees. There did appear to be some medial laxity. The medial polyethylene insert, which was 7 mm was removed. Cultures were taken deep within the knee. The area was copiously irrigated with normal saline. Any fibrinous or scar tissue was debrided. The polyethylene insert was replaced with a ConforMIS custom 8 mm polyethylene insert medially. The knee was again taken through the range of [place], [place] OPERATIVE NOTE NAME: GRETCHEN LOUIS UNIT #: [id number] ROOM: [facility] DOCTOR: CORINA MARRERO DO BIRTHDATE: [birth year] motion 0-120. Varus and valgus stress was evaluated and appeared to be acceptable. The knee was copiously irrigated with normal saline. TXA tranexamic acid was used to irrigate the joint and this was left in place for approximately 10 minutes. The joint was again irrigated with normal saline. The quadriceps mechanism was closed in a medial reefing fashion. Range of motion when again performed and the patella was noted to remain well positioned. The closure was completed with 2-0 Vicryl and skin frieda. Xeroform, 4 x 4s, and cast padding was applied. The tourniquet was released. An Kam bandage was used to complete the dressing. The tourniquet was released. The patient was taken to the recovery room in satisfactory condition. Sponge and needle count correct. ESTIMATED BLOOD LOSS: 20 mL. SPECIMENS: Gram stain and culture. Soft tissue was debrided from the joint and medial polyethylene insert. DRAINS: None. PACKING: None. COMPLICATIONS: None. FINDINGS: Subluxed patella, left total knee; contracture, left total knee; valgus or medial laxity, left total knee. CORINA MARRERO DO CM:OPRECORD:OPERATIVE NOTE 1158 [id number] CORINA MARRERO DO 11/29/18 1407 interface
[2018-11-26 07:00] LABS: INTERNATIONAL NORM RATIO 0.9 (2.0-3.5)
--- NOTE | 2018-11-26 14:00 | NUR ---
Time: 1399 A 63 year old MALE admitted to under services of PRAKASH ROTHMAN DO. Pt. arrived via bed from [place]. Chief complaint: LEFT KNEE TOTAL REVISION. ZACHARY SUAREZ
--- NOTE | 2018-11-26 15:00 | NUR ---
Upon chart review, Patient remains in surgery and not yet to his room for OT evaluation. OTR will recheck in the morning. Thank you. Pebbles Sheriff OTR/Jessica
--- NOTE | 2018-11-26 17:30 | NUR ---
PATIENT REMOVED FROM CPM MACHINE AT THIS TIME PER REQUEST OF PATIENT. PATIENT ON MACHINE FOR 3 AND A HALF HOURS. PATIENT TOLERATED WELL. PATIENT DENIES ANY PAIN AT THIS TIME.
--- NOTE | 2018-11-26 17:32 | NUR ---
PT. INSTRUCTED ON I/S AND THE BENIFITS. Q1 HOUR INSTRUCTION GIVEN. PT. ACHIEVED A VOLUME OF 2500. GOOD EFFORT.. SAT 96 R/A.
--- NOTE | 2018-11-26 18:00 | NUR ---
PATIENT UP TO BATHROOM AT THIS TIME. PATIENT TOLERATED WELL. PATIENT AMBULATED WITH WALKER WITH NO PROBLEM. PATIENT AMBULATED TO CHAIR FROM BATHROOM. PATIENT DENIES ANY PAIN AT THIS TIME.
[2018-11-27] VITALS: BP 115/74
[2018-11-27 07:02] LABS: BASO % 0.1 % (0.0-1.0); EOS # 0.1 10*3/uL (0.0-0.4); EOS % 0.5 % (1.0-4.0); HEMATOCRIT 34.1 % (42.0-52.0); HEMOGLOBIN 11.4 g/dl (14.0-18.0); LYMPH # 2.1 10*3/uL (1.3-4.4); LYMPH % 22.4 % (27.0-41.0); MEAN CELL VOLUME 92.9 fl (80.0-94.0); MEAN CORPUSCULAR HGB 31.1 pg (27.0-31.0); MEAN CORPUSCULAR HGB CONC 33.4 g/dl (33.0-37.0); MEAN PLATELET VOLUME 9.9 fl (9.6-12.3); MONO # 0.5 10*3/uL (0.1-1.0); MONO % 5.6 % (3.0-9.0); NEUT # 6.6 10*3/uL (2.3-7.9); PLATELET COUNT AUTOMATED 138 10*3/uL (130-400); RED BLOOD COUNT 3.67 10*6/uL (4.50-5.90); WHITE BLOOD COUNT 9.3 10*3/uL (4.8-10.8)
[2018-11-27 07:24] LABS: ALBUMIN 2.7 gm/dl (3.1-4.5); BUN 22 mg/dl (7-24); CHLORIDE 107 mmol/L (98-107); CREATININE 1.11 mg/dL (0.70-1.30); POTASSIUM 3.7 mmol/L (3.5-5.1); SGOT/AST 15 IU/L (3-35); SGPT/ALT 29 U/L (12-78); SODIUM 141 mmol/L (136-145); TOTAL PROTEIN 5.7 gm/dL (6.4-8.2)
[2018-11-27 07:25] LABS: ALKALINE PHOSPHATASE 78 U/L (45-117)
[2018-11-27 08:00] VITALS: BP 136/72
--- NOTE | 2018-11-27 08:38 | NUR ---
PHYSICAL THERAPY Nursing just placed CPM. Will see later this date. Alice Randolph,PT
--- NOTE | 2018-11-27 08:39 | NUR ---
Patient not available for Occupational Therapy as he was receiving CPM to left knee. OTR will recheck at a later time. Pebbles Sheriff OTR/Jessica
--- NOTE | 2018-11-27 09:00 | NUR ---
Syruper in to talk to patient. Patient states lives at home with . There are few steps in the home. Physician: lilly reyes Pharmacy: [facility] services: [facility] Patient's level of ADLs: MINIMAL ASSIST Patient has working utilities: all working DME: walker Follow-up physician's appointment after d/c: will be made by hospitalist nurse director upon discharge Does patient want to access PORTAL?: no Discharge plan discussed with patient, patient lives at home with , he is currently using a walker for ambulation, he recently had knee surgery and [facility] therapy. discussed with him a short term halfway for rehab prior to going back home due to recently surgery. patient declined, stated he would be going home and wanted [facility] to continue. case management will send a referral to [facility] for when patient is medically stable for discharge. LEWIS GUSMAN
--- NOTE | 2018-11-27 10:00 | NUR ---
PHYSICAL THERAPY Patient evaluated on 4, full evaluation to follow. Continue with PT as per plan of care with fall and TKA LLE WBAT precautions. Refuses SNF. Home with home health RN, PT and OT recommended. PAtient is moderate complexity via chart review, tests and evaluation: 70127. Thank you for this referral. Alice Randolph,PT
--- NOTE | 2018-11-27 11:00 | NUR ---
Occupational Therapy evaluation completed on 4 with full eval to follow. Precautions include L TKA W/ WBAT,moderate complexity level 25112 via chart review, testing and evalaution. Recommend OT per POC and home with with home health OT,PT,SN. Thank you for this referral. Pebbles Sheriff OTR/L
--- NOTE | 2018-11-27 11:15 | NUR ---
PATIENT'S POST SURGICAL DRESSING INTACT. NO STRIKE THROUGH NOTED. PATIENT DENIED PAIN AT TIME OF ASSESSMENT.
[2018-11-27 12:00] VITALS: BP 148/68
--- NOTE | 2018-11-27 13:03 | NUR ---
case management received an order that patient would need a CPM upon discharge, called [facility], spoke to Tri, Tri stated that patient will probable need a prior auth for the CPM and possibly a copay. Tri will call case mangement when she has any information
--- NOTE | 2018-11-27 13:10 | NUR ---
PHYSICAL THERAPY Patient seen this pm 1:1 for therapy visit and was sitting up in bedside chair with his present upon therapist arrival. Patient with continuos IV treatment, was very pleasant and voices 8/10 L knee pain around Superior/Lateral patella area. Patient SBA for for all transfers and instructed on seated HS / Gastroc prolonged stretch to improve L LE ROM. Patient presented with increased L knee edema and isrrael wrap bandage. Patient ambulates with use of std walker, > 200' x 1, SBA, demonstrating uneven stride due to Poor L foot heel strike. Patient returned to EOB sit with only mild fatigue. Patient then transfered sit to supine with use of overhead trapeze bar and is Independent with all bed mobility / repositioning. Patient remained in bed with call light, tray table and cell phone. Will continue per POC as tolerated, total treatment time 17 minutes. García Escobedo, PANTOGRAPH TRANSFERRER
--- NOTE | 2018-11-27 13:30 | NUR ---
OT NOTE Pt was seen this P.M. 1:1 for 15 minute OT session. Upon arrival pt was sitting upright in the recliner, pt identified by name and and had complaints of 8/10 L knee pain. Pt completed sit to stand transfer from chair level with SBA and use of walker for UE support. Functional mobility completed into the bathroom with SBA. There he transferred on/off standard commode with CGA for safety. Pt then returned to the EOB where he transferred sit to supine with SBA and good use of overhead trapeze bar for repositioning in bed. Pt was left supine in bed with call light in hand, tray table in place, and phone in reach. Continue with rec D/C plan to home with home health. PINO Black/Jessica
--- NOTE | 2018-11-27 13:30 | NUR ---
PHYSICAL THERAPY Therapy received new order for patient CPM to increase to 0 - 40 degrees L knee flexion per Dr Marrero. Patient's nurse was informed of this change via face to face conversation and voiced her understanding this afternoon. Will continue per POC as tolerated with all therapy goals. García Escobedo, RETAIL CLIENT SOLUTIONS CONSULTANT
[2018-11-27 16:00] VITALS: BP 124/70
--- NOTE | 2018-11-27 17:46 | NUR ---
JACOBSEN CATHETER REMOVED. TOLERATED PROCEDURE WELL. REMOVED 1350 FROM CATHETER BAG. CLEAR YELLOW. NO S/S OF DISTRESS.
--- NOTE | 2018-11-27 17:48 | NUR ---
PATIENT RECEIVED A PERCOCET FOR PAIN IN THE JAW RATED 8/10.
[2018-11-27 20:00] VITALS: BP 104/63
--- NOTE | 2018-11-27 20:48 | NUR ---
MEDICATED WITH PRN PERCOCET FOR C/O PAIN IN LEFT KNEE RATED 8/10 ON A 0/10 PAIN SCALE
[2018-11-28] VITALS: BP 119/67
--- NOTE | 2018-11-28 01:20 | NUR ---
24 HR chart check completed.
--- NOTE | 2018-11-28 05:43 | NUR ---
PATIENT STATES HE WOULD LIKE TO WAIT UNTIL CLOSER TO 7AM TO PUT THE CPM MACHINE ON.
[2018-11-28 07:39] LABS: BASO % 0.1 % (0.0-1.0); EOS # 0.1 10*3/uL (0.0-0.4); EOS % 1.1 % (1.0-4.0); HEMATOCRIT 36.7 % (42.0-52.0); HEMOGLOBIN 11.6 g/dl (14.0-18.0); LYMPH # 2.5 10*3/uL (1.3-4.4); LYMPH % 30.4 % (27.0-41.0); MEAN CELL VOLUME 93.1 fl (80.0-94.0); MEAN CORPUSCULAR HGB 29.4 pg (27.0-31.0); MEAN CORPUSCULAR HGB CONC 31.6 g/dl (33.0-37.0); MEAN PLATELET VOLUME 10.2 fl (9.6-12.3); MONO # 0.4 10*3/uL (0.1-1.0); MONO % 4.8 % (3.0-9.0); NEUT # 5.1 10*3/uL (2.3-7.9); NEUT % 62.7 % (47.0-73.0); PLATELET COUNT AUTOMATED 138 10*3/uL (130-400); RED BLOOD COUNT 3.94 10*6/uL (4.50-5.90); RED CELL DISTRI WIDTH 13.2 % (0-14.5); WHITE BLOOD COUNT 8.1 10*3/uL (4.8-10.8)
[2018-11-28 08:00] VITALS: BP 109/68
--- NOTE | 2018-11-28 08:12 | NUR ---
PHYSICAL THERAPY Patient is on CPM at this time . Will come back later this AM. KATHY SANTANA RADIO COMMUNICATIONS MECHANICIAN
--- NOTE | 2018-11-28 08:46 | NUR ---
case management called [facility] to check on status of CPM, spoke to Colby, Colby stated they would be able to deliver the CPM when patient is discharged, case management will contact [facility] when patient is medically stable for discharge
--- NOTE | 2018-11-28 09:00 | NUR ---
case manaegment visits with patient, patient will be going home when medically stable, he will have [facility], no other needs at this time
--- NOTE | 2018-11-28 09:38 | NUR ---
OT NOTE Pt was seen this A.M. 1:1 for 18 minute OT session. Upon arrival pt was supine in bed. Pt identified by name and and had complaints of 8/10 L knee pain. Pt transferred supine to sit EOB with use of leg lean consultant and overhead trapeze bar. Sit to stand transfer completed from bed level with SBA and use of standard walker for UE support. Pt completed functional mobility to the bathroom and back with SBA and use of standard walker. Pt returned to the recliner. Re educated pt on LB adaptive equipment for increased I in self care tasks. Pt stated that he has his equipment at home that he is still using, no adaptive equipment issued at this time. Pt was left sitting upright in recliner with call light in reach, tray table in place, and phone in reach. Continue with rec D/C plan to home with home health. PINO Black/Jessica
--- NOTE | 2018-11-28 09:40 | NUR ---
PATIENT RECEIVED PERC FOR PAIN IN LEG. RATES /.
[2018-11-28 12:00] VITALS: BP 112/72
--- NOTE | 2018-11-28 12:40 | NUR ---
PHYSICAL THERAPY TIME: 9:30 AM Patient presented to therapy in supine with head of bed elevated and overhead trapeze in place. Patient had report of 5/10 pain in the L Knee. Patient says the pain is worse in the posterior part of the L knee. Patient agrees to therapy session. Patient was identified by name and . Patient performed supine to sitting at EOB transfer with MIN A X 1 for moving LE out of bed and patient use of overhead trapeze. Patient transferred STS from EOB with CGA X 1. Patient ambulated with W/W for 260' x 1 with CGA X 1 with verbal cues for heel down, rolling up off of ball of foot, and upright posture. Patient had increased pain in the L Knee with ambulation to 8/10. Patient transferred back to supine in bed with CGA X 1. Patient was left in supine in bed with head of bed elevated, call light within reach, and tray table next to patient. Patient was 1:1 with this CLEANING SPECIALIST for 20 minutes total. KATHY SANTANA CLEANING SPECIALIST
--- NOTE | 2018-11-28 13:42 | NUR ---
PHYSICAL THERAPY Patient presented to therapy in supine with head of bed elevated and visiting in room with patient. Patient says his pain level is much better. Patient agrees to therapy session. Patient was identified by name and . Patient performed supine to sitting at EOB with SBA. Patient transferred STS with SBA. Patient performed ambulation 220' x 1 with S/W and Close Supervision with proper gait sequence and proper posture. Patient had minimal increased pain after taking his percocet earlier. Patient transferred back to supine in bed with SBA. Patient scooted himself up in bed with use of trapeze himself. Patient was left in supine in bed with head of bed elevated, call light within reach, and tray table near patient. Patient was 1:1 with this BINMAN for 20 minutes total.
--- NOTE | 2018-11-28 15:45 | NUR ---
PATIENT PLACED ON CPM MACHINE AT 3PM. WILL CONTINUE WITH CPM UNTIL ABOUT 5PM. DENIES UNCONTROLLED PAIN AT THIS TIME. NO S/S OF DISTRESS.
[2018-11-28 16:00] VITALS: BP 106/51
[2018-11-28 20:00] VITALS: BP 120/65
--- NOTE | 2018-11-28 23:45 | NUR ---
CPM MACHINE PLACED ON PT AT THIS TIME. MOVMENT INCREASED TO 50%. PT TOLERATING WELL. WILL CONTINUE TO MONITOR PT
[2018-11-29] VITALS: BP 114/71
--- NOTE | 2018-11-29 00:40 | NUR ---
PT GIVEN PRN PERK FOR PAIN. WILL CONTINUE TO MONITOR PT
--- NOTE | 2018-11-29 01:45 | NUR ---
PT ASESSED. PAIN MED EFFECTIVE. CPM MACHINE TAKEN OFF AT THIS TIME.
[2018-11-29 07:12] LABS: BASO % 0.1 % (0.0-1.0); EOS # 0.2 10*3/uL (0.0-0.4); EOS % 2.2 % (1.0-4.0); HEMOGLOBIN 11.7 g/dl (14.0-18.0); LYMPH # 2.4 10*3/uL (1.3-4.4); LYMPH % 35.8 % (27.0-41.0); MEAN CORPUSCULAR HGB 30.5 pg (27.0-31.0); MEAN CORPUSCULAR HGB CONC 32.5 g/dl (33.0-37.0); MEAN PLATELET VOLUME 10.8 fl (9.6-12.3); MONO # 0.3 10*3/uL (0.1-1.0); MONO % 4.5 % (3.0-9.0); NEUT # 3.8 10*3/uL (2.3-7.9); NEUT % 56.8 % (47.0-73.0); PLATELET COUNT AUTOMATED 141 10*3/uL (130-400); RED BLOOD COUNT 3.83 10*6/uL (4.50-5.90); RED CELL DISTRI WIDTH 13.4 % (0-14.5); WHITE BLOOD COUNT 6.7 10*3/uL (4.8-10.8)
[2018-11-29 08:00] VITALS: BP 115/71
--- NOTE | 2018-11-29 09:00 | NUR ---
case management visits with patient, patient states he will be going home today, case management called [facility] and informed them that patient would be going home today, they will deliver the CPM this afternoon. also notified [facility] that patient is being discharaged to home today
[2018-11-29 09:17] VITALS: BP 109/55
--- NOTE | 2018-11-29 10:15 | NUR ---
OT NOTE Pt was seen this A.M. 1:1 for 15 minute OT session. Upon arrival pt was supine in bed. Pt identified by name and pt had complaints of 8/10 "sore in LLE but not painful." Pt transferred supine to sit EOB with SBA and use of leg lift and overhead trapeze bar. Sit to stand completed from bed level with SBA and use of standard walker for UE support. Functional mobility completed into the bathroom with SBA and use of standard walker, there he transferred on/off standard commode with distant supervision. Pt then stood sink side while washing his hands with distant supervision. Pt returned to the EOB where he transferred sit to supine with SBA and use of leg lift and overhead trapeze bar. There he was left with call light in hand, tray table in place, and at bedside. Continue with rec D/C plan to home with home health. PINO Black/Jessica
--- NOTE | 2018-11-29 10:24 | NUR ---
PHYSICAL THERAPY Patient presented to therapy in supine with head of bed elevated and report of 3/10 pain in the L Knee. Patient agrees to therapy session. Patient was identified by nmae and . Patient performed supine to sitting at EOB transfer with SBA. Patient uses leg lift device to move his L LE out over the EOB. Patient performed STS transfer with SBA. Patient ambulated with Standard Walker into restroom , which is about 15' x 1 to commode. Patient transferred on and off commode with MOD I. Patient ambulated with W/W and Close Supervision for 400' x 1 with verbal cues for heel down, rolling off ball of foot, and upright posture. Patient transferred back to supine in bed with SBA and patient using leg lift. Patient was left in supine with head of bed elevated, call light within reach, and bed alarm activated. Patient was 1:1 with this TRANSPORTATION SUPERVISOR for 20 minutes total. Patient unable to do stairs because of tightness and pain in the L Knee. KATHY SANTANA TRANSPORTATION SUPERVISOR
--- NOTE | 2018-11-29 12:11 | NUR ---
Discharge instructions reviewed with patient/family. Patient receptive and verbalizes understanding. Follow-up care arranged. Written instructions given to patient/family. PATIENT TAKEN FROM FLOOR VIA WHEELCHAIR. NO S/S OF DISTRESS. SHENA ZHANG
--- NOTE | 2018-11-29 14:08 | NUR ---
PHYSICAL THERAPY CO-SIGN I approve of the Phyical Therapy notes written above. MOE GELLER PT
--- NOTE | 2018-11-29 14:43 | NUR ---
OCCUPATIONAL THERAPY CO-SIGN I approve of the Occupational Therapy notes written above. ISMAEL CORONADO OTR/Jessica
== END 2018-11-29 12:11 | disposition home health service (06) | DRG 466 ==
LOC: SDC 02:21 → 4E 11:03
PROVIDERS: Internal Medicine; Orthopaedic Surgery; ADMIT Internal Medicine
PROC: 0SPD0LZ Removal of Medial Unicondylar Synthetic Substitute from Left Knee Joint, Open Approach (ICD-10-PCS; principal; 2018-11-26)
PROC: 0QNF0ZZ Release Left Patella, Open Approach (ICD-10-PCS; principal; 2018-11-26)
PROC: 0SRD0LZ Replacement of Left Knee Joint with Medial Unicondylar Synthetic Substitute, Open Approach (ICD-10-PCS; principal; 2018-11-26)
DX: T84.023A Instability of internal left knee prosthesis, initial encounter (principal); E43 Unspecified severe protein-calorie malnutrition; R00.0 Tachycardia, unspecified; E03.9 Hypothyroidism, unspecified; E55.9 Vitamin D deficiency, unspecified; H40.9 Unspecified glaucoma; M19.90 Unspecified osteoarthritis, unspecified site; Z96.652 Presence of left artificial knee joint; Y83.8 Other surgical procedures as the cause of abnormal reaction of the patient, or of later complication, without mention of misadventure at the time of the procedure; Z87.891 Personal history of nicotine dependence; Z86.711 Personal history of pulmonary embolism; Z86.718 Personal history of other venous thrombosis and embolism; Z79.01 Long term (current) use of anticoagulants; Z84.89 Family history of other specified conditions; Z68.30 Body mass index [BMI] 30.0-30.9, adult; Y92.89 Other specified places as the place of occurrence of the external cause

== ENCOUNTER → 2018-12-06 | Outpatient (CLI) | payer BC | END | disposition home or self-care (01) | LOC: ORTHO 03:33 | DX: M19.011 Primary osteoarthritis, right shoulder (principal); M25.462 Effusion, left knee; Z96.652 Presence of left artificial knee joint ==

== ENCOUNTER → 2019-08-27 | Outpatient (CLI) | payer BC | END | disposition home or self-care (01) | LOC: US 16:48 | DX: N28.89 Other specified disorders of kidney and ureter (principal) ==

== ENCOUNTER → 2019-09-22 | Outpatient (CLI) | payer BC | END | disposition home or self-care (01) | LOC: ORTHO 01:06 | DX: Z96.652 Presence of left artificial knee joint (principal) ==

== ENCOUNTER → 2021-09-28 | Outpatient (CLI) | payer BC ==
[2021-09-28 11:00] LABS: ACT PARTIAL THROMBO TIME 65.7 SECONDS (20.0-32.1); INTERNATIONAL NORM RATIO 6.4 (2.0-3.5)
== END | disposition home or self-care (01) ==
LOC: LAB 09:54
PROVIDERS: ATTEND Family Medicine
DX: R06.02 Shortness of breath (principal); R79.89 Other specified abnormal findings of blood chemistry; R53.83 Other fatigue; E78.5 Hyperlipidemia, unspecified

== ENCOUNTER → 2021-11-03 | Outpatient (CLI) | payer BC ==
[2021-11-03 07:52] LABS: BUN 22 mg/dl (7-24); CREATININE 1.06 mg/dL (0.70-1.30)
== END | disposition home or self-care (01) ==
LOC: CT 10-27 08:00 → LAB 07:26 → CT 08:00
PROVIDERS: ATTEND Family Medicine
DX: R59.0 Localized enlarged lymph nodes (principal)

== ENCOUNTER → 2022-06-08 | Outpatient (CLI) | payer BC ==
[2022-06-08 14:02] LABS: BILIRUBIN Negative (Negative); BLOOD Negative (Negative); CLARITY Clear (Clear); COLOR Yellow (Yellow); GLUCOSE Trace (Negative); KETONE Negative (Negative); LEUKO ESTERASE Negative (Negative); NITRITE Negative (Negative); UROBILINOGEN 0.2 E.U./dl (0.0-1.0)
[2022-06-08 14:03] LABS: BASO % 0.5 % (0.0-1.0); EOS # 0.3 10*3/uL (0.0-0.4); EOS % 3.1 % (1.0-4.0); HEMATOCRIT 45.2 % (42.0-52.0); LYMPH # 1.8 10*3/uL (1.3-4.4); LYMPH % 22.7 % (27.0-41.0); MEAN CELL VOLUME 94.2 fl (80.0-94.0); MEAN CORPUSCULAR HGB 31.3 pg (27.0-31.0); MEAN CORPUSCULAR HGB CONC 33.2 g/dl (33.0-37.0); MEAN PLATELET VOLUME 10.9 fl (9.6-12.3); MONO # 0.3 10*3/uL (0.1-1.0); MONO % 3.4 % (3.0-9.0); NEUT # 5.6 10*3/uL (2.3-7.9); NEUT % 70.1 % (47.0-73.0); PLATELET COUNT AUTOMATED 105 10*3/uL (130-400); RED CELL DISTRI WIDTH 13.4 % (0-14.5)
[2022-06-08 14:04] LABS: RETICULOCYTE % 1.3 % (0.50-2.50)
[2022-06-08 14:12] LABS: MUCOUS 1+; WBC 0-2 wbc/hpf (0-5)
[2022-06-08 14:20] LABS: IRON 136 ug/dL (65-175)
[2022-06-08 14:24] LABS: ALKALINE PHOSPHATASE 86 U/L (45-117); BUN 26 mg/dl (7-24); CHLORIDE 111 mmol/L (98-107); CHOLESTEROL 236 mg/dL (<200); CREATININE 1.31 mg/dL (0.70-1.30); GAMMA GLUTAMYL TRANSPEPTIDASE 38 U/L (15-85); LDL CHOLESTEROL 143 mg/dL (9-159); POTASSIUM 3.8 mmol/L (3.5-5.1); SGOT/AST 18 IU/L (3-35); SGPT/ALT 31 U/L (12-78); SODIUM 147 mmol/L (136-145); TOTAL PROTEIN 6.7 gm/dL (6.4-8.2); TRIGLYCERIDES 158 mg/dl (<150)
[2022-06-08 15:05] LABS: FERRITIN 91.6 ng/mL (22.0-322.0)
[2022-06-09 05:06] LABS: TOTAL PROTEIN, SERUM 6.2 g/dL (6.0-8.5)
[2022-06-09 07:06] LABS: HAPTOGLOBIN 171 mg/dL (32-363); IMMUNOGLOBULIN G, QNT 688 mg/dL (603-1613); IMMUNOGLOBULIN M, QNT 10 mg/dL (20-172)
[2022-06-09 14:08] LABS: A/G RATIO 1.4 (0.7-1.7); ALBUMIN 3.6 g/dL (2.9-4.4); ALPHA-1-GLOBULIN 0.2 g/dL (0.0-0.4); ALPHA-2-GLOBULIN 0.7 g/dL (0.4-1.0); BETA GLOBULIN 1.1 g/dL (0.7-1.3); GAMMA GLOBULIN 0.6 g/dL (0.4-1.8); GLOBULIN, TOTAL 2.6 g/dL (2.2-3.9); M-SPIKE Not Observed g/dL (Not Observed)
[2022-06-09 15:07] LABS: IMMUNOFIXATION RESULT, SERUM Comment: (.)
[2022-06-10 00:06] LABS: FREE KAPPA LIGHT CHAINS 25.8 mg/L (3.3-19.4); FREE LAMBDA LIGHT CHAINS 14.8 mg/L (5.7-26.3); KAPPA/LAMBDA RATIO 1.74 (0.26-1.65)
[2022-06-13 19:06] LABS: SPECIMEN TYPE: Comment: (.)
== END | disposition home or self-care (01) ==
LOC: LAB 13:05
PROVIDERS: Family Medicine; ATTEND Internal Medicine Hematology & Oncology
DX: E78.5 Hyperlipidemia, unspecified (principal); R79.89 Other specified abnormal findings of blood chemistry; R53.83 Other fatigue; E55.9 Vitamin D deficiency, unspecified; R74.8 Abnormal levels of other serum enzymes; C83.00 Small cell B-cell lymphoma, unspecified site

== ENCOUNTER → 2022-09-07 | Outpatient (CLI) | payer BC ==
[2022-09-07 15:08] LABS: BASO % 0.2 % (0.0-1.0); EOS # 0.1 10*3/uL (0.0-0.4); HEMATOCRIT 34.9 % (42.0-52.0); LYMPH # 0.8 10*3/uL (1.3-4.4); MEAN CELL VOLUME 97.2 fl (80.0-94.0); MEAN CORPUSCULAR HGB 32.3 pg (27.0-31.0); MEAN CORPUSCULAR HGB CONC 33.2 g/dl (33.0-37.0); MEAN PLATELET VOLUME 11.1 fl (9.6-12.3); MONO # 0.2 10*3/uL (0.1-1.0); NEUT % 82.3 % (47.0-73.0); PLATELET COUNT AUTOMATED 109 10*3/uL (130-400); RED BLOOD COUNT 3.59 10*6/uL (4.50-5.90); RED CELL DISTRI WIDTH 13.8 % (0-14.5); WHITE BLOOD COUNT 6.1 10*3/uL (4.8-10.8)
== END | disposition home or self-care (01) ==
LOC: LAB 14:27
PROVIDERS: ATTEND Internal Medicine Hematology & Oncology
DX: C83.00 Small cell B-cell lymphoma, unspecified site (principal)

== ENCOUNTER → 2022-12-18 | Outpatient (CLI) | payer BC ==
[2022-12-18 11:36] LABS: RETICULOCYTE % 1.25 % (0.50-2.50)
[2022-12-18 11:37] LABS: BASO % 0.3 % (0.0-1.0); EOS # 0.4 10*3/uL (0.0-0.4); EOS % 5.1 % (1.0-4.0); HEMATOCRIT 44.8 % (42.0-52.0); LYMPH # 1.9 10*3/uL (1.3-4.4); LYMPH % 26.9 % (27.0-41.0); MEAN CELL VOLUME 90.1 fl (80.0-94.0); MEAN CORPUSCULAR HGB 30.4 pg (27.0-31.0); MEAN CORPUSCULAR HGB CONC 33.7 g/dl (33.0-37.0); MEAN PLATELET VOLUME 10.6 fl (9.6-12.3); MONO # 0.3 10*3/uL (0.1-1.0); MONO % 4.1 % (3.0-9.0); NEUT # 4.4 10*3/uL (2.3-7.9); NEUT % 63.2 % (47.0-73.0); PLATELET COUNT AUTOMATED 121 10*3/uL (130-400); RED BLOOD COUNT 4.97 10*6/uL (4.50-5.90); RED CELL DISTRI WIDTH 13.7 % (0-14.5); WHITE BLOOD COUNT 6.9 10*3/uL (4.8-10.8)
[2022-12-18 11:40] LABS: BILIRUBIN Negative (Negative); BLOOD Negative (Negative); CLARITY Clear (Clear); COLOR Yellow (Yellow); GLUCOSE 2+ (Negative); KETONE Negative (Negative); LEUKO ESTERASE Negative (Negative); NITRITE Negative (Negative); SPECIFIC GRAVITY 1.025 (1.001-1.030); UROBILINOGEN 0.2 E.U./dl (0.0-1.0)
[2022-12-18 11:48] LABS: URINE CREATININE RANDOM 138.96 mg/dL
[2022-12-18 12:01] LABS: BUN 20 mg/dl (9-23); CHLORIDE 104 mmol/L (98-107); POTASSIUM 3.5 mmol/L (3.4-5.1)
[2022-12-18 12:03] LABS: ALKALINE PHOSPHATASE 94 U/L (46-116); BUN 20 mg/dl (9-23); CHLORIDE 105 mmol/L (98-107); CHOLESTEROL 257 mg/dL (<200); GAMMA GLUTAMYL TRANSPEPTIDASE 35 U/L (0-73); LDL CHOLESTEROL 167 mg/dL (9-159); POTASSIUM 3.6 mmol/L (3.4-5.1); SGPT/ALT 21 U/L (10-49); T3 UPTAKE 25.3 % (22.4-36.7); THYROID STIM HORMONE (HS) 2.808 uIU/ml (0.550-4.780); TOTAL PROTEIN 6.5 gm/dL (6.0-8.0); TRIGLYCERIDES 172 mg/dl (<150)
[2022-12-18 12:06] LABS: BACTERIA 1+; MUCOUS 2+
[2022-12-18 12:28] LABS: VITAMIN D, 25-HYDROXY 58.7 ng/mL (30-100)
== END | disposition home or self-care (01) ==
LOC: LAB 10:59
PROVIDERS: Family Medicine; ATTEND Internal Medicine Nephrology
DX: N18.31 Chronic kidney disease, stage 3a (principal); N25.81 Secondary hyperparathyroidism of renal origin; R79.89 Other specified abnormal findings of blood chemistry; R53.83 Other fatigue; C83.00 Small cell B-cell lymphoma, unspecified site; E55.9 Vitamin D deficiency, unspecified; D63.1 Anemia in chronic kidney disease

== ENCOUNTER → 2023-01-02 | Outpatient (CLI) | payer BC ==
[2023-01-02 12:10] LABS: BASO % 0.4 % (0.0-1.0); EOS # 0.3 10*3/uL (0.0-0.4); EOS % 4.1 % (1.0-4.0); HEMATOCRIT 43.3 % (42.0-52.0); LYMPH # 1.6 10*3/uL (1.3-4.4); LYMPH % 24.3 % (27.0-41.0); MEAN CELL VOLUME 92.1 fl (80.0-94.0); MEAN CORPUSCULAR HGB 30.4 pg (27.0-31.0); MEAN PLATELET VOLUME 10.8 fl (9.6-12.3); MONO # 0.3 10*3/uL (0.1-1.0); MONO % 4.7 % (3.0-9.0); NEUT # 4.4 10*3/uL (2.3-7.9); NEUT % 64.7 % (47.0-73.0); PLATELET COUNT AUTOMATED 107 10*3/uL (130-400); WHITE BLOOD COUNT 6.8 10*3/uL (4.8-10.8)
[2023-01-02 12:38] LABS: BUN 21 mg/dl (9-23); CHLORIDE 107 mmol/L (98-107); POTASSIUM 3.8 mmol/L (3.4-5.1); TOTAL PROTEIN 6.1 gm/dL (6.0-8.0)
== END | disposition home or self-care (01) ==
LOC: LAB 11:25
PROVIDERS: ATTEND Orthopaedic Surgery
DX: Z01.812 Encounter for preprocedural laboratory examination (principal)

== ENCOUNTER → 2023-01-18 | Outpatient (CLI) | payer BC | END | disposition home or self-care (01) | LOC: CARD 10:32 | PROVIDERS: ATTEND Internal Medicine Cardiovascular Disease | DX: Z01.810 Encounter for preprocedural cardiovascular examination (principal) ==

== ENCOUNTER → 2023-03-21 | Outpatient (CLI) | payer BC ==
[2023-03-21 10:30] LABS: BASO % 0.4 % (0.0-1.0); EOS # 0.3 10*3/uL (0.0-0.4); EOS % 4.5 % (1.0-4.0); HEMATOCRIT 41.3 % (42.0-52.0); LYMPH # 1.7 10*3/uL (1.3-4.4); LYMPH % 25.1 % (27.0-41.0); MEAN CELL VOLUME 94.9 fl (80.0-94.0); MEAN CORPUSCULAR HGB 30.8 pg (27.0-31.0); MEAN CORPUSCULAR HGB CONC 32.4 g/dl (33.0-37.0); MONO # 0.3 10*3/uL (0.1-1.0); MONO % 4.3 % (3.0-9.0); NEUT # 4.5 10*3/uL (2.3-7.9); NEUT % 65.3 % (47.0-73.0); PLATELET COUNT AUTOMATED 109 10*3/uL (130-400); RED BLOOD COUNT 4.35 10*6/uL (4.50-5.90); RED CELL DISTRI WIDTH 14.2 % (0-14.5); WHITE BLOOD COUNT 6.9 10*3/uL (4.8-10.8)
== END | disposition home or self-care (01) ==
LOC: LAB 09:48
PROVIDERS: ATTEND Internal Medicine Hematology & Oncology
DX: C83.00 Small cell B-cell lymphoma, unspecified site (principal)

== ENCOUNTER → 2023-06-25 | Outpatient (CLI) | payer BC ==
[2023-06-25 13:01] LABS: BASO % 0.3 % (0.0-1.0); EOS # 0.3 10*3/uL (0.0-0.4); EOS % 4.3 % (1.0-4.0); HEMATOCRIT 42.4 % (42.0-52.0); LYMPH # 1.5 10*3/uL (1.3-4.4); LYMPH % 23.1 % (27.0-41.0); MEAN CELL VOLUME 92.4 fl (80.0-94.0); MEAN CORPUSCULAR HGB CONC 34.7 g/dl (33.0-37.0); MEAN PLATELET VOLUME 11.1 fl (9.6-12.3); MONO # 0.3 10*3/uL (0.1-1.0); MONO % 4.9 % (3.0-9.0); NEUT # 4.4 10*3/uL (2.3-7.9); NEUT % 66.9 % (47.0-73.0); PLATELET COUNT AUTOMATED 95 10*3/uL (130-400); RED BLOOD COUNT 4.59 10*6/uL (4.50-5.90); RED CELL DISTRI WIDTH 13.7 % (0-14.5); WHITE BLOOD COUNT 6.5 10*3/uL (4.8-10.8)
[2023-06-25 13:20] LABS: ALKALINE PHOSPHATASE 92 U/L (46-116); BUN 18 mg/dl (9-23); CHLORIDE 107 mmol/L (98-107); LDH 228 U/L (120-246); POTASSIUM 4.2 mmol/L (3.4-5.1); SGPT/ALT 20 U/L (10-49); TOTAL PROTEIN 5.9 gm/dL (6.0-8.0)
== END | disposition home or self-care (01) ==
LOC: LAB 12:40
PROVIDERS: ATTEND Internal Medicine Hematology & Oncology
DX: C83.00 Small cell B-cell lymphoma, unspecified site (principal)

== ENCOUNTER → 2023-09-25 | Outpatient (CLI) | payer BC ==
[2023-09-25 08:43] LABS: BASO % 0.5 % (0.0-1.0); EOS # 0.2 10*3/uL (0.0-0.4); EOS % 3.5 % (1.0-4.0); HEMATOCRIT 43.9 % (42.0-52.0); LYMPH # 1.7 10*3/uL (1.3-4.4); LYMPH % 28.5 % (27.0-41.0); MEAN CELL VOLUME 95.4 fl (80.0-94.0); MEAN CORPUSCULAR HGB 31.1 pg (27.0-31.0); MEAN CORPUSCULAR HGB CONC 32.6 g/dl (33.0-37.0); MEAN PLATELET VOLUME 10.5 fl (9.6-12.3); MONO # 0.3 10*3/uL (0.1-1.0); MONO % 4.7 % (3.0-9.0); NEUT # 3.7 10*3/uL (2.3-7.9); NEUT % 62.1 % (47.0-73.0); PLATELET COUNT AUTOMATED 110 10*3/uL (130-400)
[2023-09-25 08:44] LABS: RETICULOCYTE % 1.58 % (0.50-2.50)
[2023-09-25 08:54] LABS: BILIRUBIN Negative (Negative); BLOOD Negative (Negative); CLARITY Clear (Clear); COLOR Yellow (Yellow); GLUCOSE 2+ (Negative); KETONE Negative (Negative); LEUKO ESTERASE Negative (Negative); NITRITE Negative (Negative); SPECIFIC GRAVITY 1.025 (1.001-1.030); UROBILINOGEN 0.2 E.U./dl (0.0-1.0)
[2023-09-25 09:09] LABS: ALKALINE PHOSPHATASE 93 U/L (46-116); BUN 20 mg/dl (9-23); CHLORIDE 105 mmol/L (98-107); LDH 228 U/L (120-246); POTASSIUM 3.8 mmol/L (3.4-5.1); SGPT/ALT 20 U/L (5-49); TOTAL PROTEIN 6.3 gm/dL (6.0-8.0)
[2023-09-25 09:12] LABS: T3 UPTAKE 31.4 % (22.4-36.7); THYROXINE (T4) TOTAL 7.3 ug/dl (4.5-10.9); VITAMIN D, 25-HYDROXY 51.3 ng/mL (30-100)
[2023-09-25 09:28] LABS: MUCOUS TRACE; RBC 0-2 rbc/hpf (0-2); WBC 0-2 wbc/hpf (0-5)
== END | disposition home or self-care (01) ==
LOC: LAB 07:48
PROVIDERS: Family Medicine; ATTEND Internal Medicine Hematology & Oncology
DX: C83.00 Small cell B-cell lymphoma, unspecified site (principal); R79.89 Other specified abnormal findings of blood chemistry; R53.83 Other fatigue; E78.5 Hyperlipidemia, unspecified; R74.8 Abnormal levels of other serum enzymes; E55.9 Vitamin D deficiency, unspecified

== ENCOUNTER → 2023-10-30 | Outpatient (CLI) | payer BC ==
[~2023-10-30] MED LIST changes: +GADOTERATE MEGLUMINE 10 MMOL/20 ML VIAL IV ONE
== END | disposition home or self-care (01) ==
LOC: US 01:21
PROVIDERS: ATTEND Family Medicine
DX: I65.23 Occlusion and stenosis of bilateral carotid arteries (principal); R59.0 Localized enlarged lymph nodes; H81.10 Benign paroxysmal vertigo, unspecified ear

== ENCOUNTER → 2023-12-26 | Outpatient (CLI) | payer BC ==
[~2023-12-26] MED LIST changes: -GADOTERATE MEGLUMINE 10 MMOL/20 ML VIAL IV ONE
[2023-12-26 08:49] LABS: BASO % 0.4 % (0.0-1.0); EOS # 0.1 10*3/uL (0.0-0.4); EOS % 1.1 % (1.0-4.0); LYMPH # 0.9 10*3/uL (1.3-4.4); LYMPH % 19.7 % (27.0-41.0); MEAN CELL VOLUME 97.2 fl (80.0-94.0); MEAN CORPUSCULAR HGB CONC 32.9 g/dl (33.0-37.0); MONO # 0.2 10*3/uL (0.1-1.0); MONO % 3.9 % (3.0-9.0); NEUT # 3.4 10*3/uL (2.3-7.9); NEUT % 74.2 % (47.0-73.0); PLATELET COUNT AUTOMATED 73 10*3/uL (130-400); RED BLOOD COUNT 4.22 10*6/uL (4.50-5.90); RED CELL DISTRI WIDTH 14.2 % (0-14.5); WHITE BLOOD COUNT 4.6 10*3/uL (4.8-10.8)
[2023-12-26 08:50] LABS: BILIRUBIN Negative (Negative); BLOOD Negative (Negative); CLARITY Clear (Clear); COLOR Yellow (Yellow); GLUCOSE 3+ (Negative); KETONE Negative (Negative); LEUKO ESTERASE Negative (Negative); NITRITE Negative (Negative); PH 5.5 (4.5-8.0); SPECIFIC GRAVITY 1.025 (1.001-1.030); UROBILINOGEN 0.2 E.U./dl (0.0-1.0)
[2023-12-26 09:16] LABS: ALKALINE PHOSPHATASE 79 U/L (46-116); BUN 29 mg/dl (9-23); CHLORIDE 110 mmol/L (98-107); CHOLESTEROL 267 mg/dL (<200); GAMMA GLUTAMYL TRANSPEPTIDASE 57 U/L (0-73); LDL CHOLESTEROL 183 mg/dL (9-159); POTASSIUM 4.7 mmol/L (3.4-5.1); SGPT/ALT 34 U/L (5-49); TRIGLYCERIDES 146 mg/dl (<150)
[2023-12-26 10:04] LABS: MUCOUS 1+
== END | disposition home or self-care (01) ==
LOC: LAB 12-25 13:36
PROVIDERS: Family Medicine; ATTEND Physician Assistant
DX: R53.83 Other fatigue (principal); R79.89 Other specified abnormal findings of blood chemistry; E78.5 Hyperlipidemia, unspecified; E55.9 Vitamin D deficiency, unspecified

== ENCOUNTER → 2024-03-26 | Outpatient (CLI) | payer BC ==
[2024-03-26 08:07] LABS: BASO % 0.4 % (0.0-1.0); EOS # 0.1 10*3/uL (0.0-0.4); EOS % 2.5 % (1.0-4.0); HEMATOCRIT 40.1 % (42.0-52.0); LYMPH # 1.4 10*3/uL (1.3-4.4); LYMPH % 27.2 % (27.0-41.0); MEAN CELL VOLUME 97.1 fl (80.0-94.0); MEAN CORPUSCULAR HGB 32.2 pg (27.0-31.0); MEAN CORPUSCULAR HGB CONC 33.2 g/dl (33.0-37.0); MEAN PLATELET VOLUME 10.9 fl (9.6-12.3); MONO # 0.2 10*3/uL (0.1-1.0); MONO % 4.2 % (3.0-9.0); NEUT # 3.4 10*3/uL (2.3-7.9); NEUT % 65.3 % (47.0-73.0); PLATELET COUNT AUTOMATED 82 10*3/uL (130-400); RED BLOOD COUNT 4.13 10*6/uL (4.50-5.90); RED CELL DISTRI WIDTH 13.6 % (0-14.5); WHITE BLOOD COUNT 5.2 10*3/uL (4.8-10.8)
[2024-03-26 11:29] LABS: ALKALINE PHOSPHATASE 95 U/L (46-116); BUN 28 mg/dl (9-23); CHLORIDE 108 mmol/L (98-107); LDH 298 U/L (120-246); POTASSIUM 4.2 mmol/L (3.4-5.1); SGPT/ALT 33 U/L (5-49); TOTAL PROTEIN 5.7 gm/dL (6.0-8.0)
[2024-03-28 16:09] LABS: A/G RATIO 1.6 (0.7-1.7); ALBUMIN 3.2 g/dL (2.9-4.4); ALPHA-1-GLOBULIN 0.2 g/dL (0.0-0.4); ALPHA-2-GLOBULIN 0.6 g/dL (0.4-1.0); BETA GLOBULIN 0.9 g/dL (0.7-1.3); FREE KAPPA LIGHT CHAINS 17.4 mg/L (3.3-19.4); FREE LAMBDA LIGHT CHAINS 9.9 mg/L (5.7-26.3); GAMMA GLOBULIN 0.4 g/dL (0.4-1.8); GLOBULIN, TOTAL 2.1 g/dL (2.2-3.9); IMMUNOGLOBULIN G, QNT 506 mg/dL (603-1613); IMMUNOGLOBULIN M, QNT 7 mg/dL (20-172); KAPPA/LAMBDA RATIO 1.76 (0.26-1.65); M-SPIKE Not Observed g/dL (Not Observed); TOTAL PROTEIN, SERUM 5.3 g/dL (6.0-8.5)
== END | disposition home or self-care (01) ==
LOC: LAB 07:46
PROVIDERS: ATTEND Physician Assistant
DX: C83.00 Small cell B-cell lymphoma, unspecified site (principal)

== ENCOUNTER → 2024-06-02 | Outpatient (CLI) | payer BC | END | disposition home or self-care (01) | LOC: RAD 16:17 | PROVIDERS: ATTEND Family Medicine | DX: M19.071 Primary osteoarthritis, right ankle and foot (principal) ==

== ENCOUNTER → 2024-06-17 | Outpatient (CLI) | payer BC ==
[~2024-06-17] MED LIST changes: +IOHEXOL 300 MG/ML 100 ML VIAL IV ONE
== END | disposition home or self-care (01) ==
LOC: LAB 01:32 → CT 09:00 → LAB 09:00
PROVIDERS: ATTEND Physician Assistant
DX: C83.00 Small cell B-cell lymphoma, unspecified site (principal); I25.10 Atherosclerotic heart disease of native coronary artery without angina pectoris; R59.0 Localized enlarged lymph nodes; K76.0 Fatty (change of) liver, not elsewhere classified; K80.20 Calculus of gallbladder without cholecystitis without obstruction; N20.0 Calculus of kidney; K57.30 Diverticulosis of large intestine without perforation or abscess without bleeding; Z85.6 Personal history of leukemia

== ENCOUNTER → 2024-06-30 | Outpatient (CLI) | payer BC ==
[~2024-06-30] MED LIST changes: -IOHEXOL 300 MG/ML 100 ML VIAL IV ONE
[2024-06-30 08:15] LABS: BASO % 0.2 % (0.0-1.0); EOS # 0.1 10*3/uL (0.0-0.4); EOS % 1.8 % (1.0-4.0); HEMATOCRIT 38.9 % (42.0-52.0); LYMPH # 1.3 10*3/uL (1.3-4.4); LYMPH % 30.6 % (27.0-41.0); MEAN CELL VOLUME 95.3 fl (80.0-94.0); MEAN CORPUSCULAR HGB 31.4 pg (27.0-31.0); MEAN CORPUSCULAR HGB CONC 32.9 g/dl (33.0-37.0); MEAN PLATELET VOLUME 10.2 fl (9.6-12.3); MONO # 0.2 10*3/uL (0.1-1.0); MONO % 3.9 % (3.0-9.0); NEUT # 2.7 10*3/uL (2.3-7.9); NEUT % 62.8 % (47.0-73.0); PLATELET COUNT AUTOMATED 81 10*3/uL (130-400); RED BLOOD COUNT 4.08 10*6/uL (4.50-5.90); RED CELL DISTRI WIDTH 13.7 % (0-14.5); WHITE BLOOD COUNT 4.3 10*3/uL (4.8-10.8)
[2024-07-01 08:11] LABS: IMMUNOGLOBULIN G, QNT 482 mg/dL (603-1613)
[2024-07-01 09:08] LABS: IMMUNOGLOBULIN M, QNT <5 mg/dL (20-172)
== END | disposition home or self-care (01) ==
LOC: LAB 01:40
PROVIDERS: ATTEND Internal Medicine Hematology & Oncology
DX: C83.00 Small cell B-cell lymphoma, unspecified site (principal)

== ENCOUNTER → 2024-09-05 | Outpatient (CLI) | payer BC | END | disposition home or self-care (01) | LOC: RAD 01:55 | PROVIDERS: ATTEND Family Medicine | DX: Z13.820 Encounter for screening for osteoporosis (principal); M81.0 Age-related osteoporosis without current pathological fracture ==

== ENCOUNTER → 2024-09-20 | Outpatient (CLI) | payer BC | END | disposition home or self-care (01) | LOC: RAD 02:03 | PROVIDERS: ATTEND Family Medicine | DX: J98.4 Other disorders of lung (principal); R06.02 Shortness of breath; R07.9 Chest pain, unspecified; Z96.611 Presence of right artificial shoulder joint ==

== ENCOUNTER → 2024-09-30 | Outpatient (CLI) | payer BC ==
[2024-09-30 09:52] LABS: BASO % 0.3 % (0.0-1.0); EOS # 0.1 10*3/uL (0.0-0.4); EOS % 1.5 % (1.0-4.0); HEMATOCRIT 39.6 % (42.0-52.0); MEAN CELL VOLUME 96.1 fl (80.0-94.0); MEAN CORPUSCULAR HGB 30.3 pg (27.0-31.0); MEAN CORPUSCULAR HGB CONC 31.6 g/dl (33.0-37.0); MEAN PLATELET VOLUME 10.4 fl (9.6-12.3); MONO # 0.2 10*3/uL (0.1-1.0); MONO % 3.4 % (3.0-9.0); NEUT # 3.9 10*3/uL (2.3-7.9); PLATELET COUNT AUTOMATED 99 10*3/uL (130-400); RED BLOOD COUNT 4.12 10*6/uL (4.50-5.90); RED CELL DISTRI WIDTH 14.6 % (0-14.5); RETICULOCYTE % 1.65 % (0.50-2.50); WHITE BLOOD COUNT 6.1 10*3/uL (4.8-10.8)
[2024-09-30 09:59] LABS: BILIRUBIN Negative (Negative); BLOOD Negative (Negative); CLARITY Clear (Clear); COLOR Yellow (Yellow); GLUCOSE Trace (Negative); KETONE Negative (Negative); LEUKO ESTERASE Negative (Negative); NITRITE Negative (Negative)
[2024-09-30 10:25] LABS: BACTERIA TRACE; CALCIUM OXALATE CRYSTALS 1+; MUCOUS 1+
[2024-09-30 10:26] LABS: WBC 0-2 wbc/hpf (0-5)
[2024-09-30 10:44] LABS: ALKALINE PHOSPHATASE 111 U/L (46-116); BUN 38 mg/dl (9-23); CHLORIDE 108 mmol/L (98-107); CHOLESTEROL 216 mg/dL (<200); GAMMA GLUTAMYL TRANSPEPTIDASE 100 U/L (0-73); LDL CHOLESTEROL 136 mg/dL (9-159); POTASSIUM 4.2 mmol/L (3.4-5.1); SGPT/ALT 48 U/L (5-49); T3 UPTAKE 40.5 % (22.4-36.7); THYROXINE (T4) TOTAL 7.5 ug/dl (4.5-10.9); TOTAL PROTEIN 6.3 gm/dL (6.0-8.0); TRIGLYCERIDES 142 mg/dl (<150)
[2024-09-30 11:16] LABS: VITAMIN D, 25-HYDROXY 73.2 ng/mL (30-100)
== END | disposition home or self-care (01) ==
LOC: LAB 04:09
PROVIDERS: ATTEND Family Medicine
DX: R79.89 Other specified abnormal findings of blood chemistry (principal); R53.83 Other fatigue; E78.5 Hyperlipidemia, unspecified; E55.9 Vitamin D deficiency, unspecified

== ENCOUNTER → 2024-10-30 | Outpatient (CLI) | payer BC ==
[2024-10-30 09:32] LABS: BILIRUBIN Negative (Negative); BLOOD Negative (Negative); CLARITY Clear (Clear); COLOR Yellow (Yellow); GLUCOSE 2+ (Negative); KETONE Negative (Negative); LEUKO ESTERASE Negative (Negative); NITRITE Negative (Negative); PH 5.5 (4.5-8.0)
[2024-10-30 09:35] LABS: BASO % 0.5 % (0.0-1.0); EOS # 0.1 10*3/uL (0.0-0.4); EOS % 1.6 % (1.0-4.0); HEMATOCRIT 35.5 % (42.0-52.0); MEAN CELL VOLUME 95.2 fl (80.0-94.0); MEAN CORPUSCULAR HGB 31.4 pg (27.0-31.0); MEAN PLATELET VOLUME 10.5 fl (9.6-12.3); MONO # 0.2 10*3/uL (0.1-1.0); MONO % 3.8 % (3.0-9.0); NEUT # 2.8 10*3/uL (2.3-7.9); NEUT % 62.9 % (47.0-73.0); PLATELET COUNT AUTOMATED 100 10*3/uL (130-400); RED BLOOD COUNT 3.73 10*6/uL (4.50-5.90); RED CELL DISTRI WIDTH 14.7 % (0-14.5); WHITE BLOOD COUNT 4.4 10*3/uL (4.8-10.8)
[2024-10-30 10:17] LABS: BUN 33 mg/dl (9-23); CHLORIDE 107 mmol/L (98-107); POTASSIUM 4.2 mmol/L (3.4-5.1)
[2024-10-30 10:23] LABS: RBC 0-2 rbc/hpf (0-2)
[2024-10-30 10:24] LABS: EPITHELIAL CELLS 0-2; HYALINE CAST 0-2; MUCOUS TRACE; WBC 0-2 wbc/hpf (0-5)
== END | disposition home or self-care (01) ==
LOC: LAB 01:41
PROVIDERS: ATTEND Internal Medicine Nephrology
DX: N18.31 Chronic kidney disease, stage 3a (principal); E55.9 Vitamin D deficiency, unspecified

== ENCOUNTER → 2024-12-29 | Outpatient (CLI) | payer MEDICARE ==
[2024-12-31 14:07] LABS: A/G RATIO 1.3 (0.7-1.7); ALBUMIN 3.1 g/dL (2.9-4.4); ALPHA-1-GLOBULIN 0.3 g/dL (0.0-0.4); ALPHA-2-GLOBULIN 0.8 g/dL (0.4-1.0); FREE LAMBDA LIGHT CHAINS 15.9 mg/L (5.7-26.3); GAMMA GLOBULIN 0.5 g/dL (0.4-1.8); GLOBULIN, TOTAL 2.4 g/dL (2.2-3.9); IMMUNOGLOBULIN G, Qn 567 mg/dL (603-1613); IMMUNOGLOBULIN M, Qn <5 mg/dL (20-172); K/L RATIO 1.82 (0.26-1.65); M-SPIKE Not Observed g/dL (Not Observed)
== END | disposition home or self-care (01) ==
LOC: LAB 09:15
PROVIDERS: ATTEND Physician Assistant
DX: C83.00 Small cell B-cell lymphoma, unspecified site (principal)

== ENCOUNTER → 2025-03-31 | Outpatient (CLI) | payer MEDICARE ==
[2025-03-31 10:15] LABS: BASO # 0.0 10*3/uL (0.0-0.1); BASO % 0.2 % (0.0-1.0); EOS # 0.1 10*3/uL (0.0-0.4); EOS % 2.4 % (1.0-4.0); MEAN CELL VOLUME 94.1 fl (80.0-94.0); MEAN CORPUSCULAR HGB 30.9 pg (27.0-31.0); MEAN PLATELET VOLUME 10.8 fl (9.6-12.3); MONO # 0.2 10*3/uL (0.1-1.0); MONO % 4.2 % (3.0-9.0); NEUT # 2.8 10*3/uL (2.3-7.9); NEUT % 69.5 % (47.0-73.0); NUCLEATED RED BLOOD CELL 0.0 % (0.0-0.0); NUCLEATED RED BLOOD CELL 0.0 10*3/uL (0.0-0.0); PLATELET COUNT AUTOMATED 111 10*3/uL (130-400); RED CELL DISTRI WIDTH 14.1 % (0-14.5)
== END | disposition home or self-care (01) ==
LOC: LAB 04:21
PROVIDERS: ATTEND Internal Medicine Hematology & Oncology
DX: C83.00 Small cell B-cell lymphoma, unspecified site (principal); Z85.6 Personal history of leukemia

== ENCOUNTER → 2025-06-30 | Outpatient (CLI) | payer MEDICARE ==
[2025-06-30 09:46] LABS: BILIRUBIN Negative (Negative); BLOOD Negative (Negative); CLARITY Clear (Clear); COLOR Yellow (Yellow); KETONE Negative (Negative); LEUKO ESTERASE Negative (Negative); NITRITE Negative (Negative); PH 5.5 (4.5-8.0); SPECIFIC GRAVITY 1.020 (1.001-1.030); UROBILINOGEN 0.2 E.U./dl (0.0-1.0)
[2025-06-30 09:47] LABS: BASO # 0.0 10*3/uL (0.0-0.1); BASO % 0.4 % (0.0-1.0); EOS # 0.2 10*3/uL (0.0-0.4); EOS % 3.5 % (1.0-4.0); MEAN CELL VOLUME 94.8 fl (80.0-94.0); MEAN CORPUSCULAR HGB 30.7 pg (27.0-31.0); MEAN PLATELET VOLUME 10.1 fl (9.6-12.3); MONO # 0.2 10*3/uL (0.1-1.0); MONO % 3.7 % (3.0-9.0); NEUT # 3.1 10*3/uL (2.3-7.9); NEUT % 65.4 % (47.0-73.0); NUCLEATED RED BLOOD CELL 0.0 % (0.0-0.0); NUCLEATED RED BLOOD CELL 0.0 10*3/uL (0.0-0.0); PLATELET COUNT AUTOMATED 107 10*3/uL (130-400); RED CELL DISTRI WIDTH 14.6 % (0-14.5)
[2025-06-30 09:50] LABS: RETICULOCYTE % 1.35 % (0.50-2.50)
[2025-06-30 09:58] LABS: EPITHELIAL CELLS 0-2; WBC 0-2 wbc/hpf (0-5)
[2025-06-30 09:59] LABS: BACTERIA TRACE; HYALINE CAST 0-2
[2025-06-30 10:16] LABS: VITAMIN D, 25-HYDROXY 70.7 ng/mL (30-100)
[2025-06-30 10:17] LABS: BUN 31.0 mg/dl (9-23); GAMMA GLUTAMYL TRANSFERASE 67.0 U/L (0-73); LDL CHOLESTEROL 188.0 mg/dL (9-159); SGPT/ALT 32.0 U/L (5-49); T3 UPTAKE 38.4 % (22.4-36.7); THYROXINE (T4) TOTAL 6.6 ug/dl (4.5-10.9)
== END | disposition home or self-care (01) ==
LOC: LAB 09:09
PROVIDERS: Family Medicine; ATTEND Internal Medicine Hematology & Oncology
DX: E78.5 Hyperlipidemia, unspecified (principal); E55.9 Vitamin D deficiency, unspecified; R79.89 Other specified abnormal findings of blood chemistry; R53.83 Other fatigue

== ENCOUNTER → 2025-07-01 | Outpatient (CLI) | payer MEDICARE ==
[~2025-07-01] MED LIST changes: +IOHEXOL 300 MG/ML 100 ML VIAL IV ONE; +IOHEXOL 300 MG/ML 100 ML VIAL ONE
== END | disposition home or self-care (01) ==
LOC: CT 00:48
PROVIDERS: ATTEND Internal Medicine Hematology & Oncology
DX: C83.00 Small cell B-cell lymphoma, unspecified site (principal)